=== PATIENT | female | born 1945 | race American Indian/Alaskan Native ===

== ENCOUNTER 2018-03-23 06:44 | Inpatient (IN) | payer OTHER ==
[2018-03-23] MEDS ORDERED: Sodium Chloride 0.9% 1,000 ML IV ONE (07:40)
[2018-03-23 08:03] LABS: BASO # 0.1 K/uL (0.0-0.2); BASO % 0.8 % (0.0-2.0); EOS % 0.3 % (0.0-4.0); HEMOGLOBIN 12.8 g/dL (11.0-16.0); LYMPH # 1.4 K/uL (1.0-4.3); LYMPH % 18.6 % (20.0-40.0); MEAN CELL VOLUME 91.1 fL (81.0-99.0); MEAN CORPUSCULAR HEMOGLOBIN 30.8 pg (27.0-31.0); MEAN CORPUSCULAR HGB CONC 33.8 g/dL (33.0-37.0); MEAN PLATELET VOLUME 10.2 fL (7.2-11.7); MONO # 0.5 K/uL (0.0-0.8); MONO % 7.1 % (0.0-10.0); NEUT # 5.6 K/uL (1.8-7.0); NEUT % 73.2 % (50.0-75.0); RBC 4.16 Mil/uL (3.80-5.20); RED CELL DISTRIBUTION WIDTH 14.8 % (11.5-14.5); WHITE BLOOD COUNT 7.6 K/uL (4.8-10.8)
[2018-03-23] MEDS ORDERED: Sodium Chloride 0.9% 1,000 ML ONE (08:03)
[2018-03-23 08:14] LABS: ALBUMIN 4.6 g/dL (3.5-5.0); ALT/SGPT 29 U/L (9-52); AST/SGOT 34 U/L (14-36); BLOOD UREA NITROGEN 24 mg/dL (7-17); CALCIUM 9.5 mg/dl (8.6-10.4); GFR NON-AFRICAN AMERICAN 49; LIPASE 45 U/L (23-300)
--- NOTE | 2018-03-23 08:17 | C.PDOC ---
<Anette Monson - Last Filed: 03/23/18 08:12> History Per: Patient History/Exam Limitations: no limitations Onset/Duration Of Symptoms: Days (2-3) Current Symptoms Are (Timing): Still Present Associated Symptoms: Nausea, Vomiting, Diarrhea. denies: Back Pain, Chest Pain , Other (abdominal pain) <Alyssa Griggs - Last Filed: 03/23/18 10:31> Time Seen by Provider: 03/23/18 07:21 Chief Complaint (Nursing): Abdominal Pain Past Medical History - Medical History PMH: HTN - Social History Hx Alcohol Use: No Hx Substance Use: No <Anette Monson - Last Filed: 03/23/18 08:12> Reviewed: Historical Data, Nursing Documentation, Vital Signs - Medical History PMH: HTN Surgical History: No Surg Hx <Alyssa Griggs - Last Filed: 03/23/18 10:31> Vital Signs: Last Vital Signs Temp 98.3 F 03/23/18 09:57 Pulse 76 03/23/18 09:57 Resp 20 03/23/18 09:57 BP 183/83 H 03/23/18 09:57 Pulse Ox 96 03/23/18 09:57 ED Course And Treatment - Laboratory Results Result Diagrams: 03/23/18 07:58 O2 Sat by Pulse Oximetry: 94 <Anette Monson - Last Filed: 03/23/18 08:12> - Laboratory Results Result Diagrams: 03/23/18 07:58 03/23/18 07:58 <Alyssa Griggs - Last Filed: 03/23/18 10:31> Disposition <Anette Monson - Last Filed: 03/23/18 08:12> <Alyssa Griggs - Last Filed: 03/23/18 10:31> - Disposition Forms: [employer] ([place])
--- NOTE | 2018-03-23 08:52 | RAD ---
Date of service: 03/23/2018 HISTORY: vomiting COMPARISON: No prior. FINDINGS: LUNGS: Reticular markings are somewhat accentuated at the inferior lung zones bilaterally which could reflect atypical pneumonitis. CHF is not favored given lack of hypervascular hilar vascular markings though this is a possibility. PLEURA: No significant pleural effusion identified, no pneumothorax apparent. CARDIOVASCULAR: Prominent cardiac silhouette but no definite pulmonary vascular congestion evident. OSSEOUS STRUCTURES: No significant abnormalities. VISUALIZED UPPER ABDOMEN: Normal. OTHER FINDINGS: None. IMPRESSION: Increased mid to inferior reticular markings potentially reflection of atypical pneumonitis or early CHF. Clinically correlate further. Cardiac silhouette appears prominent.
[2018-03-23 09:06] LABS: CK-MB 0.64 ng/mL (0.0-3.38)
[2018-03-23] MEDS ORDERED: Labetalol 25mg/5ml Syringe IV STA ×2 (10:08→11:08)
[2018-03-23] MEDS ORDERED: Metoprolol 1 mg/ml Inj IVP STA (10:13)
[2018-03-23] MEDS ORDERED: Metoprolol 1 mg/ml Inj IVP ONE (10:20)
--- NOTE | 2018-03-23 10:34 | C.PDOC ---
History Of Present Illness 72 year old female with a history of HTN presents to the emergency department with complains of nausea, vomiting, and diarrhea for the last 2-3 days, as per her son. Patient reports that she has not been taking any of her HTN medications due to the fact that she ran out, and she states she typically experiences these symptoms when she does run out. She reports feeling "hot" but denies chest pain, abdominal pain, back pain, shortness of breath, numbness, or weakness. Time Seen by Provider: 03/23/18 07:21 Chief Complaint (Nursing): Abdominal Pain History Per: Patient History/Exam Limitations: no limitations Onset/Duration Of Symptoms: Days (2-3) Current Symptoms Are (Timing): Still Present Associated Symptoms: Nausea, Vomiting, Diarrhea (abdominal pain, shortness of breath, numbness, weakness). denies: Back Pain, Chest Pain Past Medical History Reviewed: Historical Data, Nursing Documentation, Vital Signs Vital Signs: Last Vital Signs Temp 97.9 F 03/31/18 15:00 Pulse 70 03/31/18 15:00 Resp 20 03/31/18 15:00 BP 133/65 03/31/18 17:51 Pulse Ox 96 03/31/18 15:00 - Medical History PMH: HTN Surgical History: No Surg Hx Family History: States: No Known Family Hx - Social History Hx Alcohol Use: No Hx Substance Use: No Review Of Systems Except As Marked, All Systems Reviewed And Found Negative. Cardiovascular: Negative for: Chest Pain Respiratory: Negative for: Shortness of Breath Gastrointestinal: Positive for: Nausea, Vomiting, Diarrhea. Negative for: Abdominal Pain Musculoskeletal: Negative for: Back Pain Neurological: Negative for: Weakness, Numbness Physical Exam - Physical Exam Appears: Non-toxic, No Acute Distress, Other (dry) Skin: Warm, Dry Head: Atraumatic, Normacephalic Eye(s): bilateral: Normal Inspection Neck: Normal, Supple Chest: Symmetrical Cardiovascular: Rhythm Regular, No Murmur Respiratory: Normal Breath Sounds, No Rales, No Rhonchi, No Wheezing Gastrointestinal/Abdominal: Normal Exam, Soft, No Tenderness, No Guarding, No Rebound Extremity: Normal ROM Neurological/Psych: Oriented x3, Normal Speech, Normal Cognition ED Course And Treatment - Laboratory Results Result Diagrams: 03/31/18 09:48 03/31/18 09:48 O2 Sat by Pulse Oximetry: 96 (RA) Pulse Ox Interpretation: Normal - Other Rad CXR X-Ray: Viewed By Me, Read By Radiologist Interpretation: IMPRESSION: Increased mid to inferior reticular markings potentially reflection of atypical pneumonitis or early CHF. Clinically correlate further. Cardiac silhouette appears prominent. Progress Note: Plan: CMP. Lipase. JACE Panel. CBC. CXR. Lopressor 5mg IVP. NaCl IV Fluids. Trandate 20mg IV. Zofran 4mg IVP. Urinalysis Disposition - Disposition Disposition: HOSPITALIZED Disposition Time: 10:49 Condition: STABLE - Clinical Impression Clinical Impression: Weakness, Abnormal EKG - PA / [employer]ST[employer]ER [employer] / Resident Statement MD/DO has reviewed & agrees with the documentation as recorded. - Scribe Statement The provider has reviewed the documentation as recorded by the Scribe (Shan Morillo) All medical record entries made by the Scribe were at my direction and personally dictated by me. I have reviewed the chart and agree that the record accurately reflects my personal performance of the history, physical exam, medical decision making, and the department course for this patient. I have also personally directed, reviewed, and agree with the discharge instructions and disposition.
--- NOTE | 2018-03-23 12:01 | CP.PCM.HP ---
<Flash Morganophe - Last Filed: 03/23/18 17:39> History of Present Illness - History of Present Illness History of Present Illness: Medicine note for hospitalist service [place] translated : [place] [id number] HPI 72yo female with a pmhx of htn presents to the ed with constant clear non- bloody vomiting x3 days and elevated bp. Pt is not able to tolerate foods. Pt has vomited any fluids shes been able to drink for past 3 days aswell. Pt reports poor appetite, hiccups as well. Pt feels dizzy post vomiting, but room is not spinning. Pt denies headaches or changes in vision. Pt has associated back pain, shoulder discomfort. Pt reports heart palpitations as previously diagnosed with her pmhx of HTN. Pt also reports freq urination (likely due to lasix? unconfirmed home rx). her last bowel movement was loose dark stool and painful when passing. ROS: pos+ n/v, dizziness, palps, loose stools, dark stools, pain with defecation , urine freq neg- hematemesis, CP, SOS, change in vision, headache, fall, diarrhea, constipation, bloody stool, bloody urine, PMD: unable to recall PMHx: HTN, gingivitis? tooth extraction (pt doesnt recall date) PSx: denies Meds: ASA ?dose, 3 unknown hypertensive meds? FamHx: Father CAD, Mom HTN DM SocHx: denies tobacco, etoh, drugs, lives with son Franklin ([phone]) Full Code Present on Admission - Present on Admission Any Indicators Present on Admission: No Review of Systems - Constitutional Constitutional: As Per HPI - EENT Eyes: As Per HPI Ears: As Per HPI Nose/Mouth/Throat: As Per HPI - Breasts Breasts: As Per HPI - Cardiovascular Cardiovascular: As Per HPI - Respiratory Respiratory: As Per HPI - Gastrointestinal Gastrointestinal: As Per HPI - Genitourinary Genitourinary: As Per HPI - Reproductive: Female Reproductive:Female: As Per HPI - Menstruation Menstruation: As Per HPI - Musculoskeletal Musculoskeletal: As Per HPI - Integumentary Integumentary: As Per HPI - Neurological Neurological: As Per HPI - Psychiatric Psychiatric: As Per HPI - Endocrine Endocrine: As Per HPI - Hematologic/Lymphatic Hematologic: As Per HPI Past Patient History - Past Social History Smoking Status: Never Smoked - CARDIAC Hx Hypertension: Yes - PSYCHIATRIC Hx Substance Use: No Meds Allergies/Adverse Reactions: Allergies Allergy/AdvReac Type Severity Reaction Status Date / Time No Known Allergies Allergy Verified 03/23/18 07:06 Physical Exam - Constitutional Appears: Confused - Head Exam Head Exam: ATRAUMATIC, NORMAL INSPECTION - Eye Exam Eye Exam: EOMI, Normal appearance, PERRL - ENT Exam ENT Exam: Mucous Membranes Moist Additional comments: missing multiple teeth gums appear erythematous - Neck Exam Neck exam: Positive for: Normal Inspection - Respiratory Exam Respiratory Exam: Clear to Auscultation Bilateral. absent: Wheezes, Respiratory Distress, Stridor - Cardiovascular Exam Cardiovascular Exam: RRR, +S1, +S2. absent: Diastolic murmur, Systolic Murmur - GI/Abdominal Exam Additional comments: LUQ abdominal tenderness on deep palpation NEG rebound - Extremities Exam Extremities exam: Positive for: normal inspection, pedal pulses present. Negative for: calf tenderness, joint swelling, pedal edema - Back Exam Back exam: NORMAL INSPECTION, paraspinal tenderness. absent: CVA tenderness (L) , CVA tenderness (R) Additional comments: thoracic bliaterally - due to chronic back pain as per pt - Neurological Exam Neurological exam: Alert, CN II-XII Intact, Oriented x3 - Psychiatric Exam Psychiatric exam: Normal Affect, Normal Mood - Skin Skin Exam: Dry, Intact, Normal Color, Warm Results - Vital Signs Recent Vital Signs: Last Vital Signs Temp 98.3 F 03/23/18 09:57 Pulse 75 03/23/18 11:45 Resp 20 03/23/18 11:45 BP 191/93 H 03/23/18 11:45 Pulse Ox 99 03/23/18 11:45 - Labs Result Diagrams: 03/23/18 07:58 03/23/18 07:58 Labs: Laboratory Results - last 24 hr 03/23/18 03/23/18 07:58 07:58 WBC 7.6 RBC 4.16 Hgb 12.8 Hct 37.9 MCV 91.1 MCH 30.8 MCHC 33.8 RDW 14.8 H Plt Count 160 MPV 10.2 Neut % (Auto) 73.2 Lymph % (Auto) 18.6 L [place] % (Auto) 7.1 Eos % (Auto) 0.3 Baso % (Auto) 0.8 Neut # (Auto) 5.6 Lymph # (Auto) 1.4 [place] # (Auto) 0.5 Eos # (Auto) 0.0 Baso # (Auto) 0.1 Sodium 144 Potassium 3.6 Chloride 100 Carbon Dioxide 30 Anion Gap 17 BUN 24 H Creatinine 1.1 Est GFR ( Amer) 59 Est GFR (Non-Af Amer) 49 Random Glucose 127 H Calcium 9.5 Total Bilirubin 0.5 AST 34 ALT 29 Alkaline Phosphatase 122 Total Creatine Kinase 107 CK-MB (Mass) 0.64 Troponin I < 0.0120 Total Protein 9.1 H Albumin 4.6 Globulin 4.5 H Albumin/Globulin Ratio 1.0 Lipase 45 Assessment & Plan - Assessment and Plan (Free Text) Assessment: 72yo F with a pmh of HTN with 3 days of vomitting, loose stool, chest discomfort and fatigue. Plan: HTN: -BP 210/100 on floor down to 170/80 this evening 6pm please cont to follow -bnp 190 -EKG: RBBB -amlodipine 10mg PO daily -coreg 12.5mg PO BID -Enalapril 2.5mg IVP once -Labetalol 20mg IVP once -[id number] prn PRN -Lasix 40mg IVP BID -f/u echo -f/u carotid Duplex -f/u trop -f/u ck-mb -f/u EKG R/o CVA -f/u CT head w/o contrast: prelim read no hemmorhagic stroke -weakness likely from dehydration Dehydration: -serum protein 9 -100ml/hr NS IV PPX: -ASA 81mg PO -Heparin sc 5000u -SCDs <Jose Juan Fitzgerald H - Last Filed: 03/23/18 18:17> Results - Vital Signs Recent Vital Signs: Last Vital Signs Temp 97.8 F 03/23/18 15:00 Pulse 63 03/23/18 15:00 Resp 20 03/23/18 15:00 BP 148/81 03/23/18 15:00 Pulse Ox 100 03/23/18 15:00 - Labs Result Diagrams: 03/23/18 07:58 03/23/18 07:58 Labs: Laboratory Results - last 24 hr 03/23/18 03/23/18 03/23/18 07:58 07:58 14:53 WBC 7.6 RBC 4.16 Hgb 12.8 Hct 37.9 MCV 91.1 MCH 30.8 MCHC 33.8 RDW 14.8 H Plt Count 160 MPV 10.2 Neut % (Auto) 73.2 Lymph % (Auto) 18.6 L [place] % (Auto) 7.1 Eos % (Auto) 0.3 Baso % (Auto) 0.8 Neut # (Auto) 5.6 Lymph # (Auto) 1.4 [place] # (Auto) 0.5 Eos # (Auto) 0.0 Baso # (Auto) 0.1 Sodium 144 Potassium 3.6 Chloride 100 Carbon Dioxide 30 Anion Gap 17 BUN 24 H Creatinine 1.1 Est GFR ( Amer) 59 Est GFR (Non-Af Amer) 49 Random Glucose 127 H Calcium 9.5 Total Bilirubin 0.5 AST 34 ALT 29 Alkaline Phosphatase 122 Total Creatine Kinase 107 CK-MB (Mass) 0.64 0.69 Troponin I < 0.0120 < 0.0120 NT-Pro-B Natriuret Pep Total Protein 9.1 H Albumin 4.6 Globulin 4.5 H Albumin/Globulin Ratio 1.0 Lipase 45 Urine Color Urine Clarity Urine pH Ur Specific [place] Urine Protein Urine Glucose (UA) Urine Ketones Urine Blood Urine Nitrate Urine Bilirubin Urine Urobilinogen Ur Leukocyte Esterase Urine WBC (Auto) Urine RBC (Auto) Ur Squamous Epith Cells 03/23/18 03/23/18 14:53 16:47 WBC RBC Hgb Hct MCV MCH MCHC RDW Plt Count MPV Neut % (Auto) Lymph % (Auto) [place] % (Auto) Eos % (Auto) Baso % (Auto) Neut # (Auto) Lymph # (Auto) [place] # (Auto) Eos # (Auto) Baso # (Auto) Sodium Potassium Chloride Carbon Dioxide Anion Gap BUN Creatinine Est GFR ( Amer) Est GFR (Non-Af Amer) Random Glucose Calcium Total Bilirubin AST ALT Alkaline Phosphatase Total Creatine Kinase CK-MB (Mass) Troponin I NT-Pro-B Natriuret Pep 190 Total Protein Albumin Globulin Albumin/Globulin Ratio Lipase Urine Color Yellow Urine Clarity Clear Urine pH 6.0 Ur Specific [place] 1.019 Urine Protein 1+ H Urine Glucose (UA) Normal Urine Ketones 1+ H Urine Blood 2+ H Urine Nitrate Negative Urine Bilirubin Negative Urine Urobilinogen Normal Ur Leukocyte Esterase Neg Urine WBC (Auto) 1 Urine RBC (Auto) 16 H Ur Squamous Epith Cells 1 Attending/Attestation - Attestation I have personally seen and examined this patient.: Yes I have fully participated in the care of the patient.: Yes I have reviewed all pertinent clinical information: Yes Notes (Text): 03/23/18 18:07 Medical attending: Patient was seen and examined by me. Agree with the above note by the resident The patient was not in acute distress. On exam and review of vitals she does have very elevated BP. In the ER she had some nausea and vomitting noted We ordered IV labetalol as well as IV vasotech. Norvasc 10 was also given as well. CT scan was done, at this moment pending the official read - I wanted to assess for possible CVA as she keeps indicating to us that she seems to have left face pain. Unfortunately history and ROS with the patient is not good. She is a not familiar with her own medical history. We tried to use a shipping services sales representative as she does not speak [place]e, however the shipping services sales representative device cut off in the middle of our discussion. Even then she does not know her own medical history and while she says she knows she is supposed to be taking her BP medications - she does not know what they are and also does not know her pharmacy. The staff tried reaching out to the son over the phone but not successful yet. Troponin was negative but we need to check additional. Also BNP was low. The CXRAY looked like had some minimal congestion. Because of the high blood pressure will need echo as well as carotid studies. Later on she had some vommiting - so will try to see if she has relief with IV Sabra Fitzgerald
[2018-03-23] MEDS ORDERED: Enalaprilat 2.5 MG/2 ML IV ONE (13:06)
[2018-03-23] MEDS ORDERED: Labetalol 25mg/5ml Syringe IVP ONE (13:15)
[2018-03-23] MEDS ORDERED: Sodium Chloride 0.45% 1,000 ML IV SCH ×3 (13:15→23:26)
[2018-03-23 15:05] LABS: SQUAMOUS EPITHIAL 1 /hpf (0-5); URINE BILIRUBIN NEGATIVE (NEGATIVE); URINE BLOOD 2+ (NEGATIVE); URINE CLARITY Clear (Clear); URINE COLOR Yellow (YELLOW); URINE GLUCOSE (UA) NORMAL (Normal); URINE LEUKOCYTE ESTERASE NEG Leu/uL (Negative); URINE PROTEIN 1+ mg/dL (NEGATIVE); URINE UROBILINOGEN NORMAL mg/dL (0.2-1.0)
[2018-03-23 15:28] LABS: CK-MB 0.69 ng/mL (0.0-3.38)
[2018-03-23] MEDS ORDERED: Potassium Chloride 20 mEq ER Tab PO SCH (17:45)
--- NOTE | 2018-03-23 18:20 | CT ---
Date of service: 03/23/2018 PROCEDURE: CT HEAD WITHOUT CONTRAST. HISTORY: facial pain, elevate bp possible cva COMPARISON: None available. TECHNIQUE: Axial computed tomography images were obtained through the head/brain without intravenous contrast. Radiation dose: Total exam DLP = 1105.10 mGy-cm. This CT exam was performed using one or more of the following dose reduction techniques: Automated exposure control, adjustment of the mA and/or kV according to patient size, and/or use of iterative reconstruction technique. FINDINGS: HEMORRHAGE: No intracranial hemorrhage. BRAIN: Mild chronic microangiopathy type white-matter density changes are identified at bilateral periventricular white matter and occasional subcortical white matter through the frontal and parietal lobes. There is no mass effect hydrocephalus or suspicious extra-axial collection appreciated. Posterior fossa contents appear unremarkable including the brainstem. A chronic lacune is identified at the anterior right basal ganglia. Mildly prominent cisterna magna is identified. No significant volume loss appreciated focally or diffusely. No cortical edema. VENTRICLES: Unremarkable. No hydrocephalus. CALVARIUM: Unremarkable. PARANASAL SINUSES: Unremarkable as visualized. No significant inflammatory changes. MASTOID AIR CELLS: Unremarkable as visualized. No inflammatory changes. OTHER FINDINGS: None. IMPRESSION: No definite acute intracranial findings as per standard CT criteria. Very limited age-related neuro degenerative findings are identified as well as a chronic lacune right basal ganglia anteriorly. Follow-up CT or MRI are available for additional characterization as clinically warranted. Concordant preliminary report from [facility], 03/23/2018.
[2018-03-23] MEDS ORDERED: Sodium Chloride 0.9% 1,000 ML IV SCH (23:30)
[2018-03-23 23:39] LABS: ALB/GLOB RATIO 0.9 (1.0-2.1); ALBUMIN 3.9 g/dL (3.5-5.0); ALT/SGPT 23 U/L (9-52); AST/SGOT 35 U/L (14-36); BLOOD UREA NITROGEN 22 mg/dL (7-17); CALCIUM 8.6 mg/dl (8.6-10.4); GFR NON-AFRICAN AMERICAN > 60
[2018-03-23 23:49] LABS: CK-MB 0.59 ng/mL (0.0-3.38)
[2018-03-24 07:24] LABS: BASO % 0.6 % (0.0-2.0); EOS % 0.2 % (0.0-4.0); LYMPH # 1.7 K/uL (1.0-4.3); LYMPH % 20.7 % (20.0-40.0); MEAN CELL VOLUME 91.2 fL (81.0-99.0); MEAN CORPUSCULAR HEMOGLOBIN 30.9 pg (27.0-31.0); MEAN CORPUSCULAR HGB CONC 33.8 g/dL (33.0-37.0); MEAN PLATELET VOLUME 10.1 fL (7.2-11.7); MONO # 0.6 K/uL (0.0-0.8); MONO % 6.8 % (0.0-10.0); NEUT % 71.7 % (50.0-75.0); RBC 3.89 Mil/uL (3.80-5.20); RED CELL DISTRIBUTION WIDTH 14.4 % (11.5-14.5); WHITE BLOOD COUNT 8.4 K/uL (4.8-10.8)
[2018-03-24 08:13] LABS: ALBUMIN 3.6 g/dL (3.5-5.0); ALT/SGPT 27 U/L (9-52); AST/SGOT 27 U/L (14-36); BLOOD UREA NITROGEN 20 mg/dL (7-17); CALCIUM 8.4 mg/dl (8.6-10.4); GFR NON-AFRICAN AMERICAN > 60
--- NOTE | 2018-03-24 08:24 | CP.PCM.PN ---
<Edwin Morgan - Last Filed: 03/24/18 17:12> Subjective - Date & Time of Evaluation Date of Evaluation: 03/24/18 Time of Evaluation: 11:04 - Subjective Subjective: MEDICINE NOTE FOR HOSPITALIST SERVICE Pt seen and examined at bedside. Pt still complining of nauseau and vomiting yesterday. Pt feels dizzy upon standing. Pt reports tolerating pills PO but not food. Pt advised to beging CLD intake at slow tolerable rate. Objective - Vital Signs/Intake and Output Vital Signs (last 24 hours): Temp Pulse Resp BP Pulse Ox 98.2 F 62 20 186/82 H 100 03/24/18 05:15 03/24/18 05:15 03/24/18 05:15 03/24/18 05:15 03/24/18 05:15 Intake and Output: 03/24/18 03/24/18 06:59 18:59 Intake Total 600 Balance 600 - Medications Medications: Current Medications Amlodipine Besylate (Norvasc) 10 mg PO DAILY [facility] Last Admin: 03/23/18 13:49 Dose: 10 mg Aspirin (Aspirin Chewable) 81 mg PO DAILY [facility] Last Admin: 03/23/18 19:58 Dose: 81 mg Carvedilol (Coreg) 12.5 mg PO BID [facility] Last Admin: 03/23/18 19:59 Dose: 12.5 mg Heparin Sodium (Porcine) (Heparin) 5,000 units SC Q8 [facility] Last Admin: 03/24/18 05:18 Dose: 5,000 units Lisinopril (Zestril) 5 mg PO DAILY [facility] Last Admin: 03/24/18 08:06 Dose: 5 mg Ondansetron HCl (Zofran Inj) 4 mg IVP Q6 [facility] Last Admin: 03/24/18 05:15 Dose: 4 mg Ondansetron HCl (Zofran Inj) 4 mg IVP DAILY@ONCE PRN PRN Reason: Nausea/Vomiting Last Admin: 03/23/18 19:32 Dose: 4 mg Pneumococcal Polyvalent Vaccine (Pneumovax 23 Vaccine) 0.5 ml IM .ONCE ONE Stop: 03/25/18 10:01 - Labs Labs: 03/24/18 07:14 03/24/18 07:14 - Additional Findings Additional findings: - Constitutional Appears: Confused - Head Exam Head Exam: ATRAUMATIC, NORMAL INSPECTION - Eye Exam Eye Exam: EOMI, Normal appearance, PERRL - ENT Exam ENT Exam: Mucous Membranes Moist Additional comments: missing multiple teeth gums appear erythematous - Neck Exam Neck exam: Positive for: Normal Inspection - Respiratory Exam Respiratory Exam: Clear to Auscultation Bilateral. absent: Wheezes, Respiratory Distress, Stridor - Cardiovascular Exam Cardiovascular Exam: RRR, +S1, +S2. absent: Diastolic murmur, Systolic Murmur - GI/Abdominal Exam Additional comments: LUQ abdominal tenderness on deep palpation NEG rebound - Extremities Exam Extremities exam: Positive for: normal inspection, pedal pulses present. Negative for: calf tenderness, joint swelling, pedal edema - Back Exam Back exam: NORMAL INSPECTION, paraspinal tenderness. absent: CVA tenderness (L) , CVA tenderness (R) Additional comments: thoracic bliaterally - due to chronic back pain as per pt - Neurological Exam Neurological exam: Alert, CN II-XII Intact, Oriented x3 - Psychiatric Exam Psychiatric exam: Normal Affect, Normal Mood - Skin Skin Exam: Dry, Intact, Normal Color, Warm Assessment and Plan - Assessment and Plan (Free Text) Assessment: 72yo F with a pmh of HTN with 3 days of vomitting, loose stool, chest discomfort and fatigue. Plan: HTN: -BP 210/100 on floor down to 170/80 this evening 6pm please cont to follow -bnp 190 -amlodipine 10mg PO daily -coreg 12.5mg PO BID -Enalapril 2.5mg IVP once -Labetalol 20mg IVP once -[id number] prn PRN -Lasix 40mg IVP BID -f/u echo -f/u carotid Duplex -trop neg x3 -ck-mb neg x3 -EKG x3 RBB Hypokalemia: -K : 3.3 -Kdur 40 -monitor R/o CVA -CT head w/o contrast: prelim read no hemmorhagic stroke -weakness likely from dehydration Facial Pain -lower left sided molar tooth pain -recommending outpt dentistry f/u Dehydration: -serum protein 9 -100ml/hr NS IV PPX: -ASA 81mg PO -Heparin sc 5000u -SCDs <Fausto Prince - Last Filed: 03/24/18 18:10> Objective - Vital Signs/Intake and Output Vital Signs (last 24 hours): Temp Pulse Resp BP Pulse Ox 98.4 F 61 20 169/80 H 99 03/24/18 15:00 03/24/18 15:00 03/24/18 15:00 03/24/18 15:00 03/24/18 15:00 Intake and Output: 03/24/18 03/24/18 06:59 18:59 Intake Total 600 Balance 600 - Medications Medications: Current Medications Amlodipine Besylate (Norvasc) 10 mg PO DAILY [facility] Last Admin: 03/24/18 10:06 Dose: 10 mg Aspirin (Aspirin Chewable) 81 mg PO DAILY [facility] Last Admin: 03/24/18 10:04 Dose: 81 mg Carvedilol (Coreg) 12.5 mg PO BID [facility] Last Admin: 03/24/18 10:06 Dose: 12.5 mg Heparin Sodium (Porcine) (Heparin) 5,000 units SC Q8 [facility] Last Admin: 03/24/18 14:41 Dose: 5,000 units Hydralazine HCl (Apresoline) 10 mg PO Q6H PRN PRN Reason: Systolic Blood Pressure Lisinopril (Zestril) 10 mg PO Q24H [facility] Pneumococcal Polyvalent Vaccine (Pneumovax 23 Vaccine) 0.5 ml IM .ONCE ONE Stop: 03/25/18 10:01 Promethazine HCl (Phenergan Syrup) 12.5 mg PO Q6 PRN PRN Reason: Nausea/Vomiting - Labs Labs: 03/24/18 07:14 03/24/18 07:14 Attending/Attestation - Attestation I have personally seen and examined this patient.: Yes I have fully participated in the care of the patient.: Yes I have reviewed all pertinent clinical information, including history, physical exam and plan: Yes Notes (Text): 03/24/18 17:28 Patient was seen and examined with Nurse Mary who translated Creol at 3:30 PM 03/24/18 Upon FULL ROS: Moved her bowels yesterday 03/23/18 normally Left side of face and head pain secondary to a tooth ache that has been going for the past year. Patient has seen an unspecified dentist roughly 1 month ago and for unspecified reason lower tooth was not removed Left inferior breast soreness/cramping pain that occurs on and off for the past 1 1/2 years. Has not had a recent Mammogram Dizziness if she gets up too quickly She had a bowl of soup prior to my exam and tolerated it without any nausea or abdominal pain She has no burning/pain with urination and has urinated twice today and the number of times that she has been going has been less NO chest pain NO palpitations NO SOB/Cough/Wheezing NO dysphagia/odynophagia NO abdominal pain NO new changes in vision NO new changes in hearing NO numbness/loss of sensation of any of her extremities Exam: General: AAOX3, NAD HEENT: NCA, EOMI, PERRLA, NO cervical/supraclavicular/submandibular lymphadenopathy, NO pharyngeal erythema/exudate, Nasal Turbinates are nonerythematous/nonedematous, Oral Mucosa is moist, Poor Dentition with multiple teeth missing upper and lower jaw, NO tooth abscess or cavity noted Cardio: NS1 and NS2, NO M/R/G Resp: CTA B/L, NO R/R/W GI: BSx4, Soft, NT, NO HSM however central obesity limits exam, NO guarding/ rebound tenderness Ext: Pulses are strong and equal, Capillary refill is 2 seconds, NO edema Neuro: CN II through XII are grossly intact 1). Nausea/Vomiting This appears to have resolved as patient is tolerating her liquid diet and had soup without any issues She is moving her bowels and GI exam is unremarkable This could be secondary to the complaints of dizziness DO NOT USE Zofran and Reglan for this patient as there is prolonged QTc on EKG Promethazine 5 ml Q6H PO PRN N/V 2). Frequent Urination Patient had this complaint upon admission however is not complaining of it now There is NO burning/pain with urination, no feeling of incomplete evacuation of the bladder, NO CVA tenderness F/U Urine Culture 3). HTN Norvasc 10 mg PO 1x/day at 10 AM Coreg 12.5 mg PO 2x/day at 10 AM and 6 PM Lisinopril increased to 10 mg PO 1x/day at 2 PM starting 03/25/18: extra 5 mg dose given 03/24/18 Hydralazine 10 mg PO Q6H PRN SBP > 160: note that IV Hydralazine is out of stock in [facility] pharmacy 4). Dizziness and Possible CVA? Admitting hospitalist was concerned for possible CVA due to complaints of Left Facial weekness However, this "weekness" is actually pain secondary to a toothache as described above in ROS Patient will need follow up with her Dentist or another Dentist for a second opinion CT Head shows age related neurodegenerative changes and chronic lacunar right basal ganglion infarct MRI Brain with and without contrast was ordered by admitting team. However I do not believe that this is necessary and considering that this patient is an extremely poor historian concerning her own medical history, we can not be sure that she does not have any metal hardware. Informed by Nurse Mary that son was supposed to come in later this evening (multiple attempts made by resident to reach out to son were not successful) and I have asked her to page the house resident when the son comes in so that additional history can be obtained. Aspirin 81 mg PO 1x/day Crestor 5 mg PO 1x/day TSH, T4 are normal Troponin x 3 are negative F/U Carotid Doppler F/U 2D Echocardiogram F/U Lyme SO with reflex Western Blot F/U RPR and FTA-Ab F/U Vitamin B12 F/U Folate F/U Vitamin D F/U Lipid Panel 5). Left Anterior Fascicular Block with RBBB EKG shows tall R wave and small Q wave in I and aVL, small R wave and deep S wave in II-III-aVF, left axis deviation, prolonged QTc which fits with Left Anterior Fascicular Block Also shows RBBB There are NO prior EKG for review and patient history is not reliable Troponin x 3 negative and she has no current complaints of Chest Pain, Palpitations, SOB F/U 2D Echocardiogram F/U further recommendations from Towel Rolling Machine Operator Dr. Bearden 6). Hypokalemia Repleted Monitor 7). Prophylaxis Heparin 5,000 Unit SC Q8H Promethazine 5 ml PO Q6H PRN N/V: NO Zofran and NO Reglan because of the prolonged QTc F/U PT evaluation and treatment for Gait Disposition: Get in contact with the son for more history! Fausto Prince D.O. 03/24/18 18:10
[2018-03-24] MEDS ORDERED: Potassium Chloride 20 mEq ER Tab PO SCH (10:00)
[2018-03-24] MEDS ORDERED: Promethazine 12.5 mg/10 ml Syrup PO PRN (15:06)
--- NOTE | 2018-03-24 18:11 | CP.PCM.PN ---
Subjective - Date & Time of Evaluation Date of Evaluation: 03/24/18 Time of Evaluation: 15:30 - Subjective Subjective: Patient was seen and examined with Nurse Mary who translated Creol at 3:30 PM 03/24/18 Upon FULL ROS: Moved her bowels yesterday 03/23/18 normally Left side of face and head pain secondary to a tooth ache that has been going for the past year. Patient has seen an unspecified dentist roughly 1 month ago and for unspecified reason lower tooth was not removed Left inferior breast soreness/cramping pain that occurs on and off for the past 1 1/2 years. Has not had a recent Mammogram Dizziness if she gets up too quickly She had a bowl of soup prior to my exam and tolerated it without any nausea or abdominal pain She has no burning/pain with urination and has urinated twice today and the number of times that she has been going has been less NO chest pain NO palpitations NO SOB/Cough/Wheezing NO dysphagia/odynophagia NO abdominal pain NO new changes in vision NO new changes in hearing NO numbness/loss of sensation of any of her extremities Exam: General: AAOX3, NAD HEENT: NCA, EOMI, PERRLA, NO cervical/supraclavicular/submandibular lymphadenopathy, NO pharyngeal erythema/exudate, Nasal Turbinates are nonerythematous/nonedematous, Oral Mucosa is moist, Poor Dentition with multiple teeth missing upper and lower jaw, NO tooth abscess or cavity noted Cardio: NS1 and NS2, NO M/R/G Resp: CTA B/L, NO R/R/W GI: BSx4, Soft, NT, NO HSM however central obesity limits exam, NO guarding/ rebound tenderness Ext: Pulses are strong and equal, Capillary refill is 2 seconds, NO edema Neuro: CN II through XII are grossly intact 1). Nausea/Vomiting This appears to have resolved as patient is tolerating her liquid diet and had soup without any issues She is moving her bowels and GI exam is unremarkable This could be secondary to the complaints of dizziness DO NOT USE Zofran and Reglan for this patient as there is prolonged QTc on EKG Promethazine 5 ml Q6H PO PRN N/V 2). Frequent Urination Patient had this complaint upon admission however is not complaining of it now There is NO burning/pain with urination, no feeling of incomplete evacuation of the bladder, NO CVA tenderness F/U Urine Culture 3). HTN Norvasc 10 mg PO 1x/day at 10 AM Coreg 12.5 mg PO 2x/day at 10 AM and 6 PM Lisinopril increased to 10 mg PO 1x/day at 2 PM starting 03/25/18: extra 5 mg dose given 03/24/18 Hydralazine 10 mg PO Q6H PRN SBP > 160: note that IV Hydralazine is out of stock in [facility] pharmacy 4). Dizziness and Possible CVA? Admitting hospitalist was concerned for possible CVA due to complaints of Left Facial weekness However, this "weekness" is actually pain secondary to a toothache as described above in ROS Patient will need follow up with her Dentist or another Dentist for a second opinion CT Head shows age related neurodegenerative changes and chronic lacunar right basal ganglion infarct MRI Brain with and without contrast was ordered by admitting team. However I do not believe that this is necessary and considering that this patient is an extremely poor historian concerning her own medical history, we can not be sure that she does not have any metal hardware. Informed by Nurse Hernandez that son was supposed to come in later this evening (multiple attempts made by resident to reach out to son were not successful) and I have asked her to page the house resident when the son comes in so that additional history can be obtained. Aspirin 81 mg PO 1x/day Crestor 5 mg PO 1x/day TSH, T4 are normal Troponin x 3 are negative F/U Carotid Doppler F/U 2D Echocardiogram F/U Lyme SO with reflex Western Blot F/U RPR and FTA-Ab F/U Vitamin B12 F/U Folate F/U Vitamin D F/U Lipid Panel 5). Left Anterior Fascicular Block with RBBB EKG shows tall R wave and small Q wave in I and aVL, small R wave and deep S wave in II-III-aVF, left axis deviation, prolonged QTc which fits with Left Anterior Fascicular Block Also shows RBBB There are NO prior EKG for review and patient history is not reliable Troponin x 3 negative and she has no current complaints of Chest Pain, Palpitations, SOB F/U 2D Echocardiogram F/U further recommendations from Home Health Outreach Coordinator Dr. Bearden 6). Hypokalemia Repleted Monitor 7). Prophylaxis Heparin 5,000 Unit SC Q8H Promethazine 5 ml PO Q6H PRN N/V: NO Zofran and NO Reglan because of the prolonged QTc F/U PT evaluation and treatment for Gait Disposition: Get in contact with the son for more history! Fausto Prince D.O. Objective - Vital Signs/Intake and Output Vital Signs (last 24 hours): Temp Pulse Resp BP Pulse Ox 98.4 F 61 20 169/80 H 99 03/24/18 15:00 03/24/18 15:00 03/24/18 15:00 03/24/18 15:00 03/24/18 15:00 Intake and Output: 03/24/18 03/24/18 06:59 18:59 Intake Total 600 Balance 600 - Medications Medications: Current Medications Amlodipine Besylate (Norvasc) 10 mg PO DAILY [facility] Last Admin: 03/24/18 10:06 Dose: 10 mg Aspirin (Aspirin Chewable) 81 mg PO DAILY [facility] Last Admin: 03/24/18 10:04 Dose: 81 mg Carvedilol (Coreg) 12.5 mg PO BID [facility] Last Admin: 03/24/18 10:06 Dose: 12.5 mg Heparin Sodium (Porcine) (Heparin) 5,000 units SC Q8 [facility] Last Admin: 03/24/18 14:41 Dose: 5,000 units Hydralazine HCl (Apresoline) 10 mg PO Q6H PRN PRN Reason: Systolic Blood Pressure Lisinopril (Zestril) 10 mg PO Q24H [facility] Pneumococcal Polyvalent Vaccine (Pneumovax 23 Vaccine) 0.5 ml IM .ONCE ONE Stop: 03/25/18 10:01 Promethazine HCl (Phenergan Syrup) 12.5 mg PO Q6 PRN PRN Reason: Nausea/Vomiting Rosuvastatin Calcium (Crestor) 5 mg PO HS [facility] - Labs Labs: 03/24/18 07:14 03/24/18 07:14
--- NOTE | 2018-03-25 08:55 | CP.PCM.PN ---
<James Crews - Last Filed: 03/25/18 18:26> Subjective - Date & Time of Evaluation Date of Evaluation: 03/25/18 Time of Evaluation: 08:40 - Subjective Subjective: Medicine Progress Note for Dr. Elijah Crews, PGY-1 Patient was seen and examined at bedside this AM with Nurse Mary who translated Creole. No acute events reported overnight. Tolerating diet well, denies any nausea, vomiting, or diarrhea. Patient continues to complain of L sided facial and head pain, likely secondary to chronic toothache for over 1 year. Per patient, she has seen an unspecified dentist in the past roughly 1 month ago and has had tooth extractions, although she was unable to remove her lower tooth for unknown reasons. No other complaints noted. Denies any chest pain, palpitations, SOB, cough, dysphagia, abdominal pain, changes in vision, or numbness/tingling of any of her extremities. Objective - Vital Signs/Intake and Output Vital Signs (last 24 hours): Temp Pulse Resp BP Pulse Ox 98.4 F 57 L 20 132/81 95 03/25/18 07:25 03/25/18 08:00 03/25/18 07:25 03/25/18 07:25 03/25/18 07:25 - Medications Medications: Current Medications Amlodipine Besylate (Norvasc) 10 mg PO DAILY [facility] Last Admin: 03/24/18 10:06 Dose: 10 mg Aspirin (Aspirin Chewable) 81 mg PO DAILY [facility] Last Admin: 03/24/18 10:04 Dose: 81 mg Carvedilol (Coreg) 12.5 mg PO BID [facility] Last Admin: 03/24/18 19:37 Dose: 12.5 mg Heparin Sodium (Porcine) (Heparin) 5,000 units SC Q8 [facility] Last Admin: 03/24/18 23:08 Dose: 5,000 units Hydralazine HCl (Apresoline) 10 mg PO Q6H PRN PRN Reason: Systolic Blood Pressure Lisinopril (Zestril) 10 mg PO Q24H [facility] Pneumococcal Polyvalent Vaccine (Pneumovax 23 Vaccine) 0.5 ml IM .ONCE ONE Stop: 03/25/18 10:01 Promethazine HCl (Phenergan Syrup) 12.5 mg PO Q6 PRN PRN Reason: Nausea/Vomiting Rosuvastatin Calcium (Crestor) 5 mg PO HS [facility] Last Admin: 03/24/18 23:08 Dose: 5 mg - Labs Labs: 03/24/18 07:14 03/24/18 07:14 - Constitutional Appears: Non-toxic, No Acute Distress - Head Exam Head Exam: ATRAUMATIC, NORMAL INSPECTION, NORMOCEPHALIC - ENT Exam ENT Exam: Mucous Membranes Moist Additional comments: Poor dentition with numerous upper and lower teeth missing. No tooth abscesses or cavitary lesions noted on exam. - Neck Exam Neck Exam: Normal Inspection. absent: Lymphadenopathy, Tenderness - Respiratory Exam Respiratory Exam: Clear to Ausculation Bilateral, NORMAL BREATHING PATTERN - Cardiovascular Exam Cardiovascular Exam: REGULAR RHYTHM, +S1, +S2 - GI/Abdominal Exam GI & Abdominal Exam: Soft, Normal Bowel Sounds. absent: Distended, Firm, Guarding, Tenderness, Mass - Extremities Exam Extremities Exam: Normal Capillary Refill, Normal Inspection. absent: Pedal Edema, Tenderness - Neurological Exam Neurological Exam: Alert, Awake, Oriented x3 - Psychiatric Exam Psychiatric exam: Normal Affect, Normal Mood - Skin Skin Exam: Dry, Intact, Normal Color, Warm Assessment and Plan - Assessment and Plan (Free Text) Assessment: 72 yo Creole speaking F with PMHx of HTN presenting with 3 days of vomiting, loose stool, chest discomfort and fatigue. Plan: 1. Nausea/Vomiting -Appears to have resolved; pt tolerated liquid diet well with no acute events -GI exam unremarkable -advance to regular, soft diet -DO NOT USE Zofran and Reglan for this patient as there is prolonged QTc on EKG -Promethazine 5 ml Q6H PO PRN N/V 2. Frequent Urination -Resolved -NO burning/pain with urination, no feeling of incomplete evacuation of the bladder, NO CVA tenderness F/U Urine Culture 3. HTN -Norvasc 10 mg PO 1x/day at 10 AM -Coreg 12.5 mg PO 2x/day at 10 AM and 6 PM -Lisinopril 10 mg PO 1x/day -Hydralazine 10 mg PO Q6H PRN SBP > 160: note that IV Hydralazine is out of stock in [facility] pharmacy 4. Dizziness, r/o CVA -Admitting hospitalist was concerned for possible CVA due to complaints of L facial weakness -"weakness" is actually pain secondary to a toothache -f/u dentist outpatient -CT Head (03/23): age related neuro-degenerative changes and chronic lacunar right basal ganglion infarct -Carotid Doppler Study (03/23): no acute findings -MRI head (03/25): no acute findings, moderate chronic microangiopathic changes and age-related global parenchymal volume loss -continue w/ ASA 81 mg PO 1x/day -continue w/ Crestor 5 mg PO 1x/day -TSH, T4 are normal -Troponin x 3 are negative -f/u 2D Echo -RPR serology nonreactive -f/u Lyme SO with reflex Western Blot -Vitamin B12, folate normal - Vitamin D 14.9 5. Left Anterior Fascicular Block with RBBB -EKG: tall R wave and small Q wave in I and aVL, small R wave and deep S wave in II-III-aVF, left axis deviation, prolonged QTc which fits with Left Anterior Fascicular Block -Also shows RBBB -NO prior EKG for review and patient history is not reliable -troponin x3 negative, no current complaints of chest pain, palpitations, SOB -f/u 2D Echo -further recs as per Biometric Fingerprinting Technician (Dr. Bearden) 6. Hypokalemia -repleted, continue to monitor 7. PPx -continue w/ heparin 5,000 Unit SC Q8H -continue w/ promethazine 5 ml PO Q6H PRN for n/v -NO Zofran and NO Reglan because of the prolonged QTc -f/u PT for Gait -Case discussed with Dr. Elijah Crews, PGY-1 <Ana María Nava - Last Filed: 03/27/18 17:01> Objective - Vital Signs/Intake and Output Vital Signs (last 24 hours): Temp Pulse Resp BP Pulse Ox 98.4 F 68 20 143/81 97 03/27/18 07:25 03/27/18 12:05 03/27/18 07:25 03/27/18 10:12 03/27/18 07:25 - Medications Medications: Current Medications Amlodipine Besylate (Norvasc) 10 mg PO DAILY [facility] Last Admin: 03/27/18 12:53 Dose: 10 mg Aspirin (Aspirin Chewable) 81 mg PO DAILY [facility] Last Admin: 03/27/18 10:13 Dose: 81 mg Carvedilol (Coreg) 12.5 mg PO BID [facility] Last Admin: 03/27/18 10:12 Dose: 12.5 mg Hydralazine HCl (Apresoline) 10 mg PO Q6H PRN PRN Reason: Systolic Blood Pressure Lisinopril (Zestril) 10 mg PO Q24H [facility] Last Admin: 03/26/18 13:05 Dose: 10 mg Promethazine HCl (Phenergan Syrup) 12.5 mg PO Q6 PRN PRN Reason: Nausea/Vomiting Rosuvastatin Calcium (Crestor) 5 mg PO HS [facility] Last Admin: 03/26/18 21:34 Dose: 5 mg - Labs Labs: 03/27/18 07:06 03/27/18 07:06 Attending/Attestation - Attestation I have personally seen and examined this patient.: Yes I have fully participated in the care of the patient.: Yes I have reviewed all pertinent clinical information, including history, physical exam and plan: Yes Notes (Text): Seen and examined, complaining of tooth problem,no active inflammation noted, Patient is not a good historian. Nurse Mary who translated Creole No vomiting,eating ok, MRI brain and CT head shows old infarct plan..follow cardiology recommendation PT evaluation we will discuss with her son Assessment and the plan discussed with the resident. I agree with the documentation
[2018-03-25] MEDS ORDERED: Pneumococcal 23-Valent Vaccine IM ONE (10:00)
--- NOTE | 2018-03-25 10:34 | VASCLAB ---
Date of service: 03/24/2018 PROCEDURE: HISTORY: Dizziness COMPARISON: None available. TECHNIQUE: Grayscale and duplex Doppler evaluation of the cervical carotid and vertebral arteries were performed. The common carotid, carotid bifurcations and cervical Internal Carotid Artery (ICA) and proximal External Carotid Artery (ECA) were evaluated. The vertebral arteries were evaluated for gross patency and flow direction. Report prepared by RABIA Sherman FINDINGS: RIGHT CAROTID ARTERIES: 1. Common Carotid Artery: No significant focal plaque formation of the right common carotid artery. Maximum Peak Systolic velocity: 77 cm/sec: End-diastolic velocity 13 cm/sec. 2. Carotid Bifurcation: plaque formation. Maximum Peak Systolic velocity: 57 cm/sec: End-diastolic velocity 9 cm/sec. 3. Internal Carotid Artery: Plaque description: 3.1. Proximal Segment: Peak systolic velocity 75 cm/sec: End-diastolic velocity 15 cm/sec - % stenosis 0-15% 3.2. Middle Segment: Peak systolic velocity 40 cm/sec: End-diastolic velocity 12 cm/sec - % stenosis 0-15% 3.3. Distal Segment: Peak systolic velocity 74 cm/sec: End-diastolic velocity 26 cm/sec - % stenosis 0-15% 4. External Carotid Artery: No significant focal plaque formation. Peak systolic velocity 87 cm/sec 5. ICA/CCA Ratio: 1.0 LEFT CAROTID ARTERIES: 1. Common Carotid Artery: No significant focal plaque formation of the left common carotid artery. Maximum Peak Systolic velocity: 80 cm/sec: End-diastolic velocity 9 cm/sec. 2. Carotid Bifurcation: plaque formation. Maximum Peak Systolic velocity: 47 cm/sec: End-diastolic velocity 8 cm/sec. 3. Internal Carotid Artery: Plaque description: 3.1. Proximal Segment: Peak systolic velocity 42 cm/sec: End-diastolic velocity 14 cm/sec - % stenosis 0-15% 3.2. Middle Segment: Peak systolic velocity 28 cm/sec: End-diastolic velocity 10 cm/sec - % stenosis 0-15% 3.3. Distal Segment: Peak systolic velocity 55 cm/sec: End-diastolic velocity 13 cm/sec - % stenosis 0-15% 4. External Carotid Artery: No significant focal plaque formation. Peak systolic velocity 72 cm/sec 5. ICA/CCA Ratio: 0.8 VERTEBRAL ARTERIES: 1. Right Vertebral Artery: The right vertebral artery flow direction is antegrade. 2. Left Vertebral Artery: The left vertebral artery flow direction is antegrade. OTHER FINDINGS: None. IMPRESSION: RIGHT: Duplex scan does not suggest hemodynamically significant stenosis of the right extracranial carotid arteries. LEFT: Duplex scan does not suggest hemodynamically significant stenosis of the left extracranial carotid arteries.
[2018-03-25 11:55] LABS: BASO # 0.1 K/uL (0.0-0.2); BASO % 0.8 % (0.0-2.0); EOS % 0.3 % (0.0-4.0); HEMOGLOBIN 12.5 g/dL (11.0-16.0); LYMPH # 2.7 K/uL (1.0-4.3); LYMPH % 28.1 % (20.0-40.0); MEAN CELL VOLUME 92.1 fL (81.0-99.0); MEAN CORPUSCULAR HEMOGLOBIN 31.2 pg (27.0-31.0); MEAN CORPUSCULAR HGB CONC 33.9 g/dL (33.0-37.0); MEAN PLATELET VOLUME 10.2 fL (7.2-11.7); MONO # 0.8 K/uL (0.0-0.8); MONO % 8.9 % (0.0-10.0); NEUT # 5.9 K/uL (1.8-7.0); NEUT % 61.9 % (50.0-75.0); NRBC % 0.1 % (0.0-2.0); RED CELL DISTRIBUTION WIDTH 14.8 % (11.5-14.5); WHITE BLOOD COUNT 9.5 K/uL (4.8-10.8)
[2018-03-25 12:07] LABS: ALBUMIN 3.9 g/dL (3.5-5.0); ALT/SGPT 28 U/L (9-52); AST/SGOT 38 U/L (14-36); BLOOD UREA NITROGEN 22 mg/dL (7-17); CALCIUM 9.1 mg/dl (8.6-10.4); GFR NON-AFRICAN AMERICAN > 60; HDL CHOLESTEROL 31 mg/dL (30-70)
[2018-03-25 12:32] LABS: LDL CHOLESTEROL 115 mg/dL (0-129)
--- NOTE | 2018-03-25 13:50 | MRI ---
Date of service: 03/25/2018 PROCEDURE: MRI BRAIN WITH AND WITHOUT CONTRAST HISTORY: f/u CT COMPARISON: Noncontrast head CT from 03/23/2018. TECHNIQUE: Multiplanar, multisequence MR images of the brain were obtained with and without intravenous contrast enhancement. 15 mL Omniscan was injected intravenously. FINDINGS: HEMORRHAGE: None DWI: No evidence of an acute or early subacute infarction. BRAIN PARENCHYMA: There are moderate chronic microangiopathic changes. There are old lacunar infarctions in the right basal ganglia and left paramedian mayela. There are prominent perivascular spaces in the basal ganglia. There is no mass, mass effect or abnormal extra-axial fluid collection. The midline sagittal structures are normal. ENHANCEMENT: No abnormal intracranial enhancement. VENTRICLES: There is mild age-related global parenchymal volume loss and proportionate enlargement of the ventricles and cortical sulci. 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 CRANIUM: There is normal bone marrow signal pattern. ORBITS: Grossly unremarkable. PARANASAL SINUSES/MASTOIDS: There is mild mucosal thickening in the paranasal sinuses, worse in the right maxillary sinus. There are trace mastoid effusions. VASCULAR SYSTEM: There are normal signal voids in the larger intracranial arteries. OTHER FINDINGS: None . IMPRESSION: No acute intracranial abnormality. Moderate chronic microangiopathic changes and mild age-related global parenchymal volume loss.
--- NOTE | 2018-03-26 07:12 | CP.PCM.PN ---
<James Crwes - Last Filed: 03/26/18 14:53> Subjective - Date & Time of Evaluation Date of Evaluation: 03/26/18 Time of Evaluation: 07:10 - Subjective Subjective: Medicine Progress Note for Dr. Elijah Crews, PGY-1 Patient was seen and examined at bedside this AM with nurse Mary Luz. No acute events reported overnight. No new episodes of vomiting or loose stools. Facial pain has improved, per patient, but still present. Continues to c/o of L sided toothache. Pt is tolerating soft diet. No n /v/d, constipation, chest pain, palpitations, SOB, cough, or changes in urination. Objective - Vital Signs/Intake and Output Vital Signs (last 24 hours): Temp Pulse Resp BP Pulse Ox 99.1 F 74 20 119/68 99 03/26/18 04:00 03/26/18 04:00 03/26/18 04:00 03/26/18 04:00 03/26/18 04:00 - Medications Medications: Current Medications Amlodipine Besylate (Norvasc) 10 mg PO DAILY [facility] Last Admin: 03/25/18 11:07 Dose: 10 mg Aspirin (Aspirin Chewable) 81 mg PO DAILY [facility] Last Admin: 03/25/18 11:07 Dose: 81 mg Carvedilol (Coreg) 12.5 mg PO BID [facility] Last Admin: 03/25/18 17:24 Dose: 12.5 mg Heparin Sodium (Porcine) (Heparin) 5,000 units SC Q8 [facility] Last Admin: 03/26/18 05:49 Dose: 5,000 units Hydralazine HCl (Apresoline) 10 mg PO Q6H PRN PRN Reason: Systolic Blood Pressure Lisinopril (Zestril) 10 mg PO Q24H [facility] Last Admin: 03/25/18 15:49 Dose: 10 mg Promethazine HCl (Phenergan Syrup) 12.5 mg PO Q6 PRN PRN Reason: Nausea/Vomiting Rosuvastatin Calcium (Crestor) 5 mg PO HS [facility] Last Admin: 03/25/18 21:34 Dose: 5 mg - Labs Labs: 03/25/18 11:41 03/25/18 11:41 - Constitutional Appears: Non-toxic, No Acute Distress - Head Exam Head Exam: ATRAUMATIC, NORMAL INSPECTION, NORMOCEPHALIC - Eye Exam Eye Exam: Normal appearance - ENT Exam ENT Exam: Mucous Membranes Moist, Normal Exam Additional comments: Poor dentition with numerous upper and lower teeth missing. No tooth abscesses or cavitary lesions noted on exam. - Respiratory Exam Respiratory Exam: Clear to Ausculation Bilateral, NORMAL BREATHING PATTERN - Cardiovascular Exam Cardiovascular Exam: RRR, +S1, +S2 - GI/Abdominal Exam GI & Abdominal Exam: Soft, Normal Bowel Sounds. absent: Distended, Firm, Guarding, Tenderness - Extremities Exam Extremities Exam: Normal Inspection - Back Exam Back Exam: NORMAL INSPECTION - Neurological Exam Neurological Exam: Alert, Awake, Oriented x3 - Psychiatric Exam Psychiatric exam: Normal Affect, Normal Mood - Skin Skin Exam: Dry, Intact, Normal Color, Warm Assessment and Plan - Assessment and Plan (Free Text) Assessment: 72 yo Creole speaking F with PMHx of HTN presenting with L sided facial pain and toothache and associated vomiting, loose stool, chest discomfort and fatigue x 3 days. Plan: 1. Nausea/Vomiting -Appears to have resolved; pt tolerating soft regular diet -GI exam unremarkable -DO NOT USE Zofran and Reglan for this patient as there is prolonged QTc on EKG -Promethazine 5 ml Q6H PO PRN N/V 2. Frequent Urination -Resolved -NO burning/pain with urination, no feeling of incomplete evacuation of the bladder, NO CVA tenderness -UCx: multiple spp, recommend repeat specimen 3. HTN -Norvasc 10 mg PO 1x/day at 10 AM -Coreg 12.5 mg PO 2x/day at 10 AM and 6 PM -Lisinopril 10 mg PO 1x/day -Hydralazine 10 mg PO Q6H PRN SBP > 160: note that IV Hydralazine is out of stock in [facility] pharmacy 4. Dizziness, r/o CVA -Admitting hospitalist was concerned for possible CVA due to complaints of L facial weakness -"weakness" is actually pain secondary to a toothache -f/u dentist outpatient -CT Head (03/23): age related neuro-degenerative changes and chronic lacunar right basal ganglion infarct -Carotid Doppler Study (03/23): no acute findings -MRI head (03/25): no acute findings, moderate chronic microangiopathic changes and age-related global parenchymal volume loss -continue w/ ASA 81 mg PO 1x/day -continue w/ Crestor 5 mg PO 1x/day -TSH, T4 are normal -Troponin x 3 are negative -f/u 2D Echo -RPR serology nonreactive -Lyme Screen negative -Vitamin B12, folate normal - Vitamin D 14.9 5. Left Anterior Fascicular Block with RBBB -EKG: tall R wave and small Q wave in I and aVL, small R wave and deep S wave in II-III-aVF, left axis deviation, prolonged QTc which fits with Left Anterior Fascicular Block -Also shows RBBB -NO prior EKG for review and patient history is not reliable -troponin x3 negative, no current complaints of chest pain, palpitations, SOB -f/u 2D Echo -further recs as per [employer] Rew[employer] (Dr. Bearden) 6. Hypokalemia -repleted, continue to monitor 7. PPx -continue w/ heparin 5,000 Unit SC Q8H -continue w/ promethazine 5 ml PO Q6H PRN for n/v -NO Zofran and NO Reglan because of the prolonged QTc -PT on board -recommended ALEJANDRO for d/c but pt has no discharge -requires walker for ambulation -took 5 side steps with moderate assistance, unsteady gait -recommends additional time on floor to work on strength, if planning to d/c home -can set up home PT when ready for d/c -Case discussed with Dr. Elijah Crews, PGY-1 <Ana María Nava - Last Filed: 03/27/18 17:04> Objective - Vital Signs/Intake and Output Vital Signs (last 24 hours): Temp Pulse Resp BP Pulse Ox 97.2 F L 69 20 145/72 99 03/27/18 15:00 03/27/18 15:00 03/27/18 15:00 03/27/18 15:00 03/27/18 15:00 - Medications Medications: Current Medications Amlodipine Besylate (Norvasc) 10 mg PO DAILY [facility] Last Admin: 03/27/18 12:53 Dose: 10 mg Aspirin (Aspirin Chewable) 81 mg PO DAILY [facility] Last Admin: 03/27/18 10:13 Dose: 81 mg Carvedilol (Coreg) 12.5 mg PO BID [facility] Last Admin: 03/27/18 10:12 Dose: 12.5 mg Hydralazine HCl (Apresoline) 10 mg PO Q6H PRN PRN Reason: Systolic Blood Pressure Lisinopril (Zestril) 10 mg PO Q24H [facility] Last Admin: 03/27/18 14:00 Dose: 10 mg Promethazine HCl (Phenergan Syrup) 12.5 mg PO Q6 PRN PRN Reason: Nausea/Vomiting Rosuvastatin Calcium (Crestor) 5 mg PO HS [facility] Last Admin: 03/26/18 21:34 Dose: 5 mg - Labs Labs: 03/27/18 07:06 03/27/18 07:06 Attending/Attestation - Attestation I have personally seen and examined this patient.: Yes I have fully participated in the care of the patient.: Yes I have reviewed all pertinent clinical information, including history, physical exam and plan: Yes Notes (Text): Seen and examined. no new complain patient was seen by automation test developer. no new recommendation Seen by PT. Recommending ALEJANDRO. She has no insurance We will follow up with SON,sw and PT Assessment and the plan discussed with the resident
[2018-03-26 07:57] LABS: BASO # 0.1 K/uL (0.0-0.2); BASO % 0.9 % (0.0-2.0); EOS # 0.1 K/uL (0.0-0.7); EOS % 0.7 % (0.0-4.0); HEMOGLOBIN 11.7 g/dL (11.0-16.0); LYMPH # 2.8 K/uL (1.0-4.3); LYMPH % 33.3 % (20.0-40.0); MEAN CELL VOLUME 91.2 fL (81.0-99.0); MEAN CORPUSCULAR HEMOGLOBIN 30.8 pg (27.0-31.0); MEAN CORPUSCULAR HGB CONC 33.8 g/dL (33.0-37.0); MEAN PLATELET VOLUME 10.1 fL (7.2-11.7); MONO # 0.8 K/uL (0.0-0.8); NEUT # 4.8 K/uL (1.8-7.0); NEUT % 56.1 % (50.0-75.0); NRBC % 0.1 % (0.0-2.0); RBC 3.81 Mil/uL (3.80-5.20); RED CELL DISTRIBUTION WIDTH 14.6 % (11.5-14.5); WHITE BLOOD COUNT 8.5 K/uL (4.8-10.8)
[2018-03-26 08:09] LABS: ALBUMIN 3.6 g/dL (3.5-5.0)
[2018-03-26] MEDS ORDERED: Potassium Chloride 20 mEq/15 ml LIQ UD PO ONE (12:44)
--- NOTE | 2018-03-26 16:47 | CARD ---
APPROVED REPORT Date of service: 03/23/2018 EKG Measurement Heart [id number] ND [id number] <Conclusion> Sinus rhythm with premature atrial complexes Right bundle branch block Left anterior fascicular block Bifascicular block Voltage criteria for left ventricular hypertrophy Abnormal ECG
--- NOTE | 2018-03-26 16:53 | CARD ---
APPROVED REPORT Date of service: 03/23/2018 EKG Measurement Heart [id number] MD [id number] <Conclusion> Sinus rhythm with blocked premature atrial complexes Right bundle branch block Left anterior fascicular block Bifascicular block Voltage criteria for left ventricular hypertrophy T wave abnormality, consider lateral ischemia Abnormal ECG
--- NOTE | 2018-03-26 16:55 | CARD ---
APPROVED REPORT Date of service: 03/23/2018 EKG Measurement Heart [id number] [id number] <Conclusion> Normal sinus rhythm Right bundle branch block Left anterior fascicular block Bifascicular block Voltage criteria for left ventricular hypertrophy Abnormal ECG
--- NOTE | 2018-03-26 18:31 | CP.PCM.PN ---
<LoboYassinegila - Last Filed: 03/26/18 18:29> Subjective - Date & Time of Evaluation Date of Evaluation: 03/26/18 Time of Evaluation: 13:40 - Subjective Subjective: PGY 3 Cardiology Note- Dr. Bearden's service Patient seen and examined in no apparent acute distress. No acute events overnight per nursing. Patient admits to a headache at this time. She denies other complaints at this time. Objective - Vital Signs/Intake and Output Vital Signs (last 24 hours): Temp Pulse Resp BP Pulse Ox 97.8 F 66 20 129/71 97 03/26/18 15:15 03/26/18 15:15 03/26/18 15:15 03/26/18 17:17 03/26/18 15:15 - Medications Medications: Current Medications Amlodipine Besylate (Norvasc) 10 mg PO DAILY [facility] Last Admin: 03/26/18 10:28 Dose: 10 mg Aspirin (Aspirin Chewable) 81 mg PO DAILY [facility] Last Admin: 03/26/18 10:28 Dose: 81 mg Carvedilol (Coreg) 12.5 mg PO BID [facility] Last Admin: 03/26/18 17:17 Dose: 12.5 mg Heparin Sodium (Porcine) (Heparin) 5,000 units SC Q8 [facility] Last Admin: 03/26/18 14:45 Dose: 5,000 units Hydralazine HCl (Apresoline) 10 mg PO Q6H PRN PRN Reason: Systolic Blood Pressure Lisinopril (Zestril) 10 mg PO Q24H [facility] Last Admin: 03/26/18 13:05 Dose: 10 mg Promethazine HCl (Phenergan Syrup) 12.5 mg PO Q6 PRN PRN Reason: Nausea/Vomiting Rosuvastatin Calcium (Crestor) 5 mg PO HS [facility] Last Admin: 03/25/18 21:34 Dose: 5 mg - Labs Labs: 03/26/18 07:45 03/26/18 07:45 - Constitutional Appears: Non-toxic, No Acute Distress - Head Exam Head Exam: ATRAUMATIC - Eye Exam Eye Exam: EOMI, Normal appearance Pupil Exam: NORMAL ACCOMODATION - ENT Exam ENT Exam: Mucous Membranes Moist - Neck Exam Neck Exam: Full ROM - Respiratory Exam Respiratory Exam: NORMAL BREATHING PATTERN - Cardiovascular Exam Cardiovascular Exam: +S1, +S2 - GI/Abdominal Exam GI & Abdominal Exam: Soft - Extremities Exam Extremities Exam: Full ROM - Neurological Exam Neurological Exam: Alert, Awake, Oriented x3 - Psychiatric Exam Psychiatric exam: Normal Affect, Normal Mood - Skin Skin Exam: Dry, Normal Color, Warm Assessment and Plan - Assessment and Plan (Free Text) Assessment: Left Anterior Fascicular Block with RBBB Signs of RBBB noted on EKG. No clinical complaints at this time. Continue monitoring. Echo report pending HTN Continued antihypertensive management Prophylactic measure Heparin SC Q12 No GI prophylaxis at this time Patient is stable from cardiology standpoint. Will sign off at this time. <Dimas Bearden - Last Filed: 03/26/18 21:37> Objective - Vital Signs/Intake and Output Vital Signs (last 24 hours): Temp Pulse Resp BP Pulse Ox 97.8 F 71 20 129/71 97 03/26/18 15:15 03/26/18 16:00 03/26/18 15:15 03/26/18 17:17 03/26/18 15:15 - Medications Medications: Current Medications Amlodipine Besylate (Norvasc) 10 mg PO DAILY [facility] Last Admin: 03/26/18 10:28 Dose: 10 mg Aspirin (Aspirin Chewable) 81 mg PO DAILY [facility] Last Admin: 03/26/18 10:28 Dose: 81 mg Carvedilol (Coreg) 12.5 mg PO BID [facility] Last Admin: 03/26/18 17:17 Dose: 12.5 mg Heparin Sodium (Porcine) (Heparin) 5,000 units SC Q8 [facility] Last Admin: 03/26/18 14:45 Dose: 5,000 units Hydralazine HCl (Apresoline) 10 mg PO Q6H PRN PRN Reason: Systolic Blood Pressure Lisinopril (Zestril) 10 mg PO Q24H [facility] Last Admin: 03/26/18 13:05 Dose: 10 mg Promethazine HCl (Phenergan Syrup) 12.5 mg PO Q6 PRN PRN Reason: Nausea/Vomiting Rosuvastatin Calcium (Crestor) 5 mg PO HS [facility] Last Admin: 03/25/18 21:34 Dose: 5 mg - Labs Labs: 03/26/18 07:45 03/26/18 07:45 Assessment and Plan - Assessment and Plan (Free Text) Assessment: Patient seen and evaluated personally by me Plan of care d/w the medical officer psychiatry and as documented ECHO: Normal LV function No further cardiac work up needed. Will sign off Thank you
[2018-03-27 07:27] LABS: BASO # 0.1 K/uL (0.0-0.2); BASO % 0.7 % (0.0-2.0); EOS # 0.1 K/uL (0.0-0.7); EOS % 1.5 % (0.0-4.0); HEMOGLOBIN 11.4 g/dL (11.0-16.0); LYMPH # 3.2 K/uL (1.0-4.3); MEAN CELL VOLUME 90.8 fL (81.0-99.0); MEAN CORPUSCULAR HGB CONC 34.2 g/dL (33.0-37.0); MEAN PLATELET VOLUME 10.3 fL (7.2-11.7); MONO # 0.8 K/uL (0.0-0.8); MONO % 8.5 % (0.0-10.0); NEUT % 54.3 % (50.0-75.0); NRBC % 0.1 % (0.0-2.0); RBC 3.66 Mil/uL (3.80-5.20); WHITE BLOOD COUNT 9.2 K/uL (4.8-10.8)
[2018-03-27 07:48] LABS: ALB/GLOB RATIO 0.9 (1.0-2.1); ALBUMIN 3.4 g/dL (3.5-5.0)
--- NOTE | 2018-03-27 10:15 | CP.PCM.PN ---
<James Crews - Last Filed: 03/27/18 15:15> Subjective - Date & Time of Evaluation Date of Evaluation: 03/27/18 Time of Evaluation: 07:40 - Subjective Subjective: PGY-[address] Nava Patient seen and examined at bedside this AM. No acute events reported overnight. Tolerating diet well. Continues to have mild L sided facial pain a/w toothache. No nausea or vomiting, no loose stools. Denies constipation, chest pain, palpitations, SOB, cough, or changes in urination. Spoke with pt's son on the phone about her clinical status. Son says she does not follow a PMD regularly and has run out of MXP4. Advised to follow up in outpatient clinic at [facility] for continuity of care. Objective - Vital Signs/Intake and Output Vital Signs (last 24 hours): Temp Pulse Resp BP Pulse Ox 98.4 F 73 20 118/74 97 03/27/18 07:25 03/27/18 07:25 03/27/18 07:25 03/27/18 07:25 03/27/18 07:25 - Medications Medications: Current Medications Amlodipine Besylate (Norvasc) 10 mg PO DAILY [facility] Last Admin: 03/26/18 10:28 Dose: 10 mg Aspirin (Aspirin Chewable) 81 mg PO DAILY [facility] Last Admin: 03/26/18 10:28 Dose: 81 mg Carvedilol (Coreg) 12.5 mg PO BID [facility] Last Admin: 03/26/18 17:17 Dose: 12.5 mg Hydralazine HCl (Apresoline) 10 mg PO Q6H PRN PRN Reason: Systolic Blood Pressure Lisinopril (Zestril) 10 mg PO Q24H [facility] Last Admin: 03/26/18 13:05 Dose: 10 mg Promethazine HCl (Phenergan Syrup) 12.5 mg PO Q6 PRN PRN Reason: Nausea/Vomiting Rosuvastatin Calcium (Crestor) 5 mg PO HS [facility] Last Admin: 03/26/18 21:34 Dose: 5 mg - Labs Labs: 03/27/18 07:06 03/27/18 07:06 - Constitutional Appears: Non-toxic, No Acute Distress - Head Exam Head Exam: ATRAUMATIC, NORMAL INSPECTION, NORMOCEPHALIC - ENT Exam ENT Exam: Mucous Membranes Moist, Normal Exam Additional comments: Poor dentition with numerous upper and lower teeth missing. No tooth abscesses or cavitary lesions noted on exam. - Respiratory Exam Respiratory Exam: Clear to Ausculation Bilateral, NORMAL BREATHING PATTERN - Cardiovascular Exam Cardiovascular Exam: RRR, +S1, +S2 - GI/Abdominal Exam GI & Abdominal Exam: Soft, Normal Bowel Sounds. absent: Distended, Firm, Guarding, Rigid, Tenderness - Extremities Exam Extremities Exam: Normal Capillary Refill, Normal Inspection - Back Exam Back Exam: NORMAL INSPECTION - Neurological Exam Neurological Exam: Alert, Awake, Oriented x3 - Psychiatric Exam Psychiatric exam: Normal Affect, Normal Mood - Skin Skin Exam: Dry, Intact, Normal Color, Warm Assessment and Plan - Assessment and Plan (Free Text) Assessment: 72 yo Creole speaking F with PMHx of HTN presenting with L sided facial pain and toothache and associated vomiting, loose stools since resolved. Plan: . Nausea/Vomiting (resolved) -pt tolerating soft regular diet -GI exam unremarkable -DO NOT USE Zofran and Reglan for this patient as there is prolonged QTc on EKG -Promethazine 5 ml Q6H PO PRN N/V 2. Frequent Urination (Resolved) -NO burning/pain with urination, no feeling of incomplete evacuation of the bladder, NO CVA tenderness -UCx: multiple spp, recommend repeat specimen 3. HTN -Norvasc 10 mg PO 1x/day at 10 AM -Coreg 12.5 mg PO 2x/day at 10 AM and 6 PM -Lisinopril 10 mg PO 1x/day -Hydralazine 10 mg PO Q6H PRN SBP > 160: note that IV Hydralazine is out of stock in [facility] pharmacy 4. Dizziness, r/o CVA -Admitting hospitalist was concerned for possible CVA due to complaints of L facial weakness -"weakness" is actually pain secondary to a toothache -f/u dentist outpatient -CT Head (03/23): age related neuro-degenerative changes and chronic lacunar right basal ganglion infarct -Carotid Doppler Study (03/23): no acute findings -MRI head (03/25): no acute findings, moderate chronic microangiopathic changes and age-related global parenchymal volume loss -continue w/ ASA 81 mg PO 1x/day -continue w/ Crestor 5 mg PO 1x/day -TSH, T4 are normal -Troponin x 3 are negative -f/u 2D Echo -RPR serology nonreactive -Lyme Screen negative -Vitamin B12, folate normal - Vitamin D 14.9 5. Left Anterior Fascicular Block with RBBB -EKG: tall R wave and small Q wave in I and aVL, small R wave and deep S wave in II-III-aVF, left axis deviation, prolonged QTc which fits with Left Anterior Fascicular Block -Also shows RBBB -NO prior EKG for review and patient history is not reliable -troponin x3 negative, no current complaints of chest pain, palpitations, SOB -f/u 2D Echo -medically cleared per Cardio recs (Dr. Bearden) 6. Hypokalemia -repleted, continue to monitor 7. PPx -continue w/ heparin 5,000 Unit SC Q8H -continue w/ promethazine 5 ml PO Q6H PRN for n/v -NO Zofran and NO Reglan because of the prolonged QTc -PT on board -recommended ALEJANDRO for d/c but pt has no insurance -requires walker for ambulation -takes 5 side steps with moderate assistance, unsteady gait -f/u case management for safe discharge plan -Case discussed with Dr. Elijah Crews, PGY-1 <Ana María Nava - Last Filed: 03/27/18 17:23> Objective - Vital Signs/Intake and Output Vital Signs (last 24 hours): Temp Pulse Resp BP Pulse Ox 97.2 F L 69 20 145/72 99 03/27/18 15:00 03/27/18 15:00 03/27/18 15:00 03/27/18 15:00 03/27/18 15:00 - Medications Medications: Current Medications Amlodipine Besylate (Norvasc) 10 mg PO DAILY [facility] Last Admin: 03/27/18 12:53 Dose: 10 mg Aspirin (Aspirin Chewable) 81 mg PO DAILY [facility] Last Admin: 03/27/18 10:13 Dose: 81 mg Carvedilol (Coreg) 12.5 mg PO BID [facility] Last Admin: 03/27/18 10:12 Dose: 12.5 mg Hydralazine HCl (Apresoline) 10 mg PO Q6H PRN PRN Reason: Systolic Blood Pressure Lisinopril (Zestril) 10 mg PO Q24H [facility] Last Admin: 03/27/18 14:00 Dose: 10 mg Promethazine HCl (Phenergan Syrup) 12.5 mg PO Q6 PRN PRN Reason: Nausea/Vomiting Rosuvastatin Calcium (Crestor) 5 mg PO HS [facility] Last Admin: 03/26/18 21:34 Dose: 5 mg - Labs Labs: 03/27/18 07:06 03/27/18 07:06 Attending/Attestation - Attestation I have personally seen and examined this patient.: Yes I have fully participated in the care of the patient.: Yes I have reviewed all pertinent clinical information, including history, physical exam and plan: Yes Notes (Text): Patient has same complain about her tooth issues. Denies dizziness to PT. Discussed with PT .She is unsteady and not ready for discharge with walker. Spoke to her Son about her baseline and past history. Asper her son she was brought in for vomiting and patient not eating well to bad teeth. She has history of hypertension. She is using cane to ambulate since she was hospitalized in [facility] . He wasn't sure whether she had stroke or not.They were told her blood pressure is high. she ambulate with cane and needs assistance at home. Son cook food for her. 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 Decline in her condition may be due to being on for few days Plan - cont PT to improve mobility and transfers. d/w the resident and I agree with the assessment and the plan
[2018-03-27] MEDS ORDERED: Potassium Chloride 20 mEq/15 ml LIQ UD PO ONE (11:15)
[2018-03-28 08:31] LABS: BASO # 0.1 K/uL (0.0-0.2); BASO % 1.2 % (0.0-2.0); EOS # 0.2 K/uL (0.0-0.7); EOS % 2.1 % (0.0-4.0); HEMOGLOBIN 11.4 g/dL (11.0-16.0); LYMPH # 3.1 K/uL (1.0-4.3); LYMPH % 31.5 % (20.0-40.0); MEAN CELL VOLUME 91.7 fL (81.0-99.0); MEAN CORPUSCULAR HEMOGLOBIN 31.2 pg (27.0-31.0); MEAN PLATELET VOLUME 11.3 fL (7.2-11.7); MONO # 0.7 K/uL (0.0-0.8); MONO % 7.4 % (0.0-10.0); NEUT # 5.7 K/uL (1.8-7.0); NEUT % 57.8 % (50.0-75.0); NRBC % 0.1 % (0.0-2.0); RBC 3.66 Mil/uL (3.80-5.20); RED CELL DISTRIBUTION WIDTH 14.8 % (11.5-14.5); WHITE BLOOD COUNT 9.8 K/uL (4.8-10.8)
[2018-03-28 09:18] LABS: ALB/GLOB RATIO 0.9 (1.0-2.1); ALBUMIN 3.5 g/dL (3.5-5.0); ALT/SGPT 23 U/L (9-52); AST/SGOT 19 U/L (14-36); BLOOD UREA NITROGEN 26 mg/dL (7-17); CALCIUM 8.9 mg/dl (8.6-10.4); GFR NON-AFRICAN AMERICAN > 60
--- NOTE | 2018-03-28 10:34 | CP.PCM.PN ---
<James Crews - Last Filed: 03/28/18 18:22> Subjective - Date & Time of Evaluation Date of Evaluation: 03/28/18 Time of Evaluation: 07:15 - Subjective Subjective: PGY-1 Medicine Progress Note for Dr. Nava Patient seen and examined lying comfortably in bed this AM. No acute events reported overnight. Continues to c/o of mild L sided facial pain a/w toothache. No other acute complaints at this time. Tolerating diet well, no nausea or vomiting, no loose stools. Denies constipation, chest pain, palpitations, SOB, cough, or changes in urination. Objective - Vital Signs/Intake and Output Vital Signs (last 24 hours): Temp Pulse Resp BP Pulse Ox 97.2 F L 86 20 146/92 H 97 03/28/18 08:43 03/28/18 08:43 03/28/18 08:43 03/28/18 09:49 03/28/18 08:43 - Medications Medications: Current Medications Amlodipine Besylate (Norvasc) 10 mg PO DAILY [facility] Last Admin: 03/28/18 09:49 Dose: 10 mg Aspirin (Aspirin Chewable) 81 mg PO DAILY [facility] Last Admin: 03/28/18 09:49 Dose: 81 mg Carvedilol (Coreg) 12.5 mg PO BID [facility] Last Admin: 03/28/18 09:49 Dose: 12.5 mg Hydralazine HCl (Apresoline) 10 mg PO Q6H PRN PRN Reason: Systolic Blood Pressure Lisinopril (Zestril) 10 mg PO Q24H [facility] Last Admin: 03/27/18 14:00 Dose: 10 mg Promethazine HCl (Phenergan Syrup) 12.5 mg PO Q6 PRN PRN Reason: Nausea/Vomiting Rosuvastatin Calcium (Crestor) 5 mg PO HS [facility] Last Admin: 03/27/18 21:29 Dose: 5 mg - Labs Labs: 03/28/18 08:19 03/28/18 08:19 - Constitutional Appears: Non-toxic, No Acute Distress, Confused - Head Exam Head Exam: ATRAUMATIC, NORMAL INSPECTION, NORMOCEPHALIC - ENT Exam ENT Exam: Mucous Membranes Moist, Normal Exam Additional comments: Poor dentition with numerous upper and lower teeth missing. No tooth abscesses or cavitary lesions noted on exam. - Respiratory Exam Respiratory Exam: Clear to Ausculation Bilateral, NORMAL BREATHING PATTERN - Cardiovascular Exam Cardiovascular Exam: RRR, +S1, +S2 - GI/Abdominal Exam GI & Abdominal Exam: Soft, Normal Bowel Sounds. absent: Distended, Firm, Guarding, Tenderness - Extremities Exam Extremities Exam: Normal Capillary Refill, Normal Inspection - Back Exam Back Exam: NORMAL INSPECTION - Neurological Exam Neurological Exam: Alert, Awake, Oriented x3. absent: Normal Gait Additional comments: Poor coordination and balance. Requires 2 person max assistance with walker for ambulation, heavily leans to her left side. - Psychiatric Exam Psychiatric exam: Normal Affect, Normal Mood - Skin Skin Exam: Dry, Intact, Normal Color, Warm Assessment and Plan - Assessment and Plan (Free Text) Assessment: 72 yo Creole speaking F with PMHx of HTN presenting with L sided facial pain and toothache and associated vomiting, loose stools since resolved. Plan: 1. Dizziness, r/o CVA -Admitting hospitalist was concerned for possible CVA due to complaints of L facial weakness -"weakness" is actually pain secondary to a toothache -f/u with dentist outpatient -CT Head (03/23): age related neuro-degenerative changes and chronic lacunar right basal ganglion infarct -Carotid Doppler Study (03/23): no acute findings -MRI head (03/25): no acute findings, moderate chronic microangiopathic changes and age-related global parenchymal volume loss -f/u repeat CT head (03/28) -TSH, T4 are normal -Troponin x 3 are negative -f/u 2D Echo -RPR serology nonreactive -Lyme Screen negative -Vitamin B12, folate normal - Vitamin D 14.9 -continue w/ ASA 81 mg PO 1x/day -continue w/ Crestor 5 mg PO 1x/day 2. HTN -Norvasc 10 mg PO 1x/day at 10 AM -Coreg 12.5 mg PO 2x/day at 10 AM and 6 PM -Lisinopril 10 mg PO 1x/day -Hydralazine 10 mg PO Q6H PRN SBP > 160: note that IV Hydralazine is out of stock in [facility] pharmacy 3. Left Anterior Fascicular Block with RBBB -EKG: tall R wave and small Q wave in I and aVL, small R wave and deep S wave in II-III-aVF, left axis deviation, prolonged QTc which fits with Left Anterior Fascicular Block -Also shows RBBB -NO prior EKG for review and patient history is not reliable -troponin x3 negative, no current complaints of chest pain, palpitations, SOB -Echo: LVH with diastolic dysfunction -medically cleared per Cardio recs (Dr. Bearden) 6. Hypokalemia -repleted, continue to monitor 7. PPx -continue w/ heparin 5,000 Unit SC Q8H -continue w/ promethazine 5 ml PO Q6H PRN for n/v -NO Zofran and NO Reglan because of the prolonged QTc -PT on board -recommended ALEJANDRO for d/c but pt has no insurance -requires 2 person max assist with walker for ambulation, very high fall risk -f/u case management for safe discharge plan -Case discussed with Dr. Elijah Crews, PGY-1 <Ana María Nava - Last Filed: 03/30/18 19:08> Objective - Vital Signs/Intake and Output Vital Signs (last 24 hours): Temp Pulse Resp BP Pulse Ox 97.7 F 74 20 150/70 96 03/30/18 15:00 03/30/18 15:00 03/30/18 15:00 03/30/18 15:00 03/30/18 15:00 - Medications Medications: Current Medications Amlodipine Besylate (Norvasc) 10 mg PO DAILY [facility] Last Admin: 03/30/18 10:09 Dose: 10 mg Aspirin (Aspirin Chewable) 81 mg PO DAILY [facility] Last Admin: 03/30/18 10:10 Dose: 81 mg Carvedilol (Coreg) 12.5 mg PO BID [facility] Last Admin: 03/30/18 10:09 Dose: 12.5 mg Heparin Sodium (Porcine) (Heparin) 5,000 units SC Q12 [facility] Last Admin: 03/30/18 10:10 Dose: 5,000 units Hydralazine HCl (Apresoline) 10 mg PO Q6H PRN PRN Reason: Systolic Blood Pressure Lisinopril (Zestril) 10 mg PO Q24H [facility] Last Admin: 03/30/18 14:44 Dose: 10 mg Promethazine HCl (Phenergan Syrup) 12.5 mg PO Q6 PRN PRN Reason: Nausea/Vomiting Rosuvastatin Calcium (Crestor) 5 mg PO HS [facility] Last Admin: 03/29/18 22:47 Dose: 5 mg - Labs Labs: 03/30/18 06:38 03/30/18 06:38 Attending/Attestation - Attestation I have personally seen and examined this patient.: Yes I have fully participated in the care of the patient.: Yes I have reviewed all pertinent clinical information, including history, physical exam and plan: Yes Notes (Text): seen and examined ,no new weakness Patient need two person assessment. Not ready for discharge. Denies dizziness to PT. complaining that her she has tooth problem.Seen without discomfort and no gum inflammation Discussed with PT .She is unsteady and not ready for discharge with walker. Spoke to her Son about her baseline and past history. Asper her son she was brought in for vomiting and patient not eating well to bad teeth. She has history of hypertension. She is using cane to ambulate since she was hospitalized in [facility] . He wasn't sure whether she had stroke or not.They were told her blood pressure was high.At home she ambulate with cane ,son help her with climb stairs. Son cook food for her. 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 Decline in her condition may be due to being on for few days we will cont PT to improve mobility and transfers. I agree with the assessment and the plan
--- NOTE | 2018-03-28 10:44 | CARD ---
APPROVED REPORT Date of service: 03/25/2018 EXAM: Two-dimensional and M-mode echocardiogram with Doppler and color Doppler. Other Information Quality : TDSRhythm : INDICATION Dizziness and Vertigo Palpitations RISK FACTORS Hypertension 2D DIMENSIONS IVSd1.3 (0.7-1.1cm)LVDd4.0 (3.9-5.9cm) PWd1.3 (0.7-1.1cm)LVDs2.1 (2.5-4.0cm) FS (%) 47.6 %LVEF (%)75.0 (>50%) M-Mode DIMENSIONS Left Atrium (MM)3.57 (2.5-4.0cm)IVSd1.43 (0.7-1.1cm) Aortic Root3.20 (2.2-3.7cm)LVDd4.44 (4.0-5.6cm) Aortic Cusp Exc.2.11 (1.5-2.0cm)PWd1.05 (0.7-1.1cm) FS (%) 51 %LVDs2.16 (2.0-3.8cm) LVEF (%)70 (>50%) Mitral Valve MV E Ezormczm15.5cm/sMV A Psgeptpf582.5cm/sE/A ratio0.6 TDI E/Lateral E'0.0E/Medial E'0.0 Tricuspid Valve TR Peak Mgfxbprl017yb/sTR Peak Gr.[id number] LEFT VENTRICLE The left ventricle is normal size. There is mild to moderate concentric left ventricular hypertrophy. The left ventricular function is normal. The left ventricular ejection fraction is within the normal range. There is normal LV segmental wall motion. Transmitral Doppler flow pattern is abnormal. AORTIC VALVE The aortic valve is mildly to moderately sclerotic. There is trace to mild aortic regurgitation. MITRAL VALVE Mitral regurgitation is trace to mild. TRICUSPID VALVE There is trace to mild tricuspid regurgitation. <Conclusion> Normal LV systolic function. LVH with disatolic dysfunction. Normal chamber size. Trace to mild AR. Trace to mild MR. Trace to mild TR
--- NOTE | 2018-03-29 07:43 | CP.PCM.PN ---
<James Crews - Last Filed: 03/29/18 18:31> Subjective - Date & Time of Evaluation Date of Evaluation: 03/29/18 Time of Evaluation: 07:10 - Subjective Subjective: PGY-1 Medicine Progress Note for Dr. Nava Patient seen and examined lying comfortably in bed this AM. No acute events reported overnight. No changes in pain. Tolerating diet well, no nausea or vomiting, no loose stools. Denies constipation, chest pain, palpitations, SOB, cough, or changes in urination. Objective - Vital Signs/Intake and Output Vital Signs (last 24 hours): Temp Pulse Resp BP Pulse Ox 98.6 F 70 18 139/70 99 03/29/18 01:00 03/29/18 01:00 03/29/18 01:00 03/29/18 01:00 03/29/18 01:00 Intake and Output: 03/29/18 03/29/18 06:59 18:59 Intake Total 200 Balance 200 - Medications Medications: Current Medications Amlodipine Besylate (Norvasc) 10 mg PO DAILY [facility] Last Admin: 03/28/18 09:49 Dose: 10 mg Aspirin (Aspirin Chewable) 81 mg PO DAILY [facility] Last Admin: 03/28/18 09:49 Dose: 81 mg Carvedilol (Coreg) 12.5 mg PO BID [facility] Last Admin: 03/28/18 18:01 Dose: 12.5 mg Heparin Sodium (Porcine) (Heparin) 5,000 units SC Q12 [facility] Last Admin: 03/28/18 22:00 Dose: 5,000 units Hydralazine HCl (Apresoline) 10 mg PO Q6H PRN PRN Reason: Systolic Blood Pressure Lisinopril (Zestril) 10 mg PO Q24H [facility] Last Admin: 03/28/18 14:56 Dose: 10 mg Promethazine HCl (Phenergan Syrup) 12.5 mg PO Q6 PRN PRN Reason: Nausea/Vomiting Rosuvastatin Calcium (Crestor) 5 mg PO HS [facility] Last Admin: 03/28/18 22:00 Dose: 5 mg - Labs Labs: 03/28/18 08:19 03/28/18 08:19 - Constitutional Appears: Non-toxic, No Acute Distress, Confused - Head Exam Head Exam: ATRAUMATIC, NORMAL INSPECTION, NORMOCEPHALIC - Eye Exam Eye Exam: EOMI, Normal appearance - ENT Exam ENT Exam: Mucous Membranes Moist, Normal Exam - Neck Exam Neck Exam: Normal Inspection - Respiratory Exam Respiratory Exam: Clear to Ausculation Bilateral, NORMAL BREATHING PATTERN - Cardiovascular Exam Cardiovascular Exam: RRR, +S1, +S2 - GI/Abdominal Exam GI & Abdominal Exam: Soft, Normal Bowel Sounds. absent: Distended, Firm, Guarding, Rigid, Tenderness - Extremities Exam Extremities Exam: Normal Capillary Refill, Normal Inspection - Back Exam Back Exam: NORMAL INSPECTION - Neurological Exam Neurological Exam: Alert, Awake, Oriented x3. absent: Normal Gait Additional comments: Poor coordination and balance. Improved ambulation but continues to lean to her left side. Significant decreased functional mobility, high fall risk per PT. - Psychiatric Exam Psychiatric exam: Normal Affect, Normal Mood - Skin Skin Exam: Dry, Intact, Normal Color, Warm Assessment and Plan - Assessment and Plan (Free Text) Assessment: 72 yo Creole speaking F with PMHx of HTN presenting with L sided facial pain and toothache and associated vomiting, loose stools since resolved. Plan: 1. Dizziness, r/o CVA -Admitting hospitalist was concerned for possible CVA due to complaints of L facial weakness -"weakness" is actually pain secondary to a toothache -f/u with dentist outpatient -CT Head (03/23): age related neuro-degenerative changes and chronic lacunar right basal ganglion infarct -Carotid Doppler Study (03/23): no acute findings -MRI head (03/25): no acute findings, moderate chronic microangiopathic changes and age-related global parenchymal volume loss -f/u repeat CT head (03/28) -TSH, T4 are normal -Troponin x 3 are negative -f/u 2D Echo -RPR serology nonreactive -Lyme Screen negative -Vitamin B12, folate normal - Vitamin D 14.9 -continue w/ ASA 81 mg PO 1x/day -continue w/ Crestor 5 mg PO 1x/day 2. HTN -Norvasc 10 mg PO 1x/day at 10 AM -Coreg 12.5 mg PO 2x/day at 10 AM and 6 PM -Lisinopril 10 mg PO 1x/day -Hydralazine 10 mg PO Q6H PRN SBP > 160: note that IV Hydralazine is out of stock in [facility] pharmacy 3. Left Anterior Fascicular Block with RBBB -EKG: tall R wave and small Q wave in I and aVL, small R wave and deep S wave in II-III-aVF, left axis deviation, prolonged QTc which fits with Left Anterior Fascicular Block -Also shows RBBB -NO prior EKG for review and patient history is not reliable -troponin x3 negative, no current complaints of chest pain, palpitations, SOB -Echo: LVH with diastolic dysfunction -medically cleared per Cardio recs (Dr. Bearden) 6. Hypokalemia -repleted, continue to monitor 7. PPx, Diet, Disposition -continue w/ heparin 5,000 Unit SC Q8H -continue w/ promethazine 5 ml PO Q6H PRN for n/v -NO Zofran and NO Reglan because of the prolonged QTc -PT on board -recommended ALEJANDRO for d/c but pt has no insurance -requires 2 person max assist with walker for ambulation, very high fall risk -f/u case management for safe discharge plan -soft, regular diet -Case discussed with Dr. Elijah Crews, PGY-1 <Ana María Nava - Last Filed: 03/30/18 19:10> Objective - Vital Signs/Intake and Output Vital Signs (last 24 hours): Temp Pulse Resp BP Pulse Ox 97.7 F 74 20 150/70 96 03/30/18 15:00 03/30/18 15:00 03/30/18 15:00 03/30/18 15:00 03/30/18 15:00 - Medications Medications: Current Medications Amlodipine Besylate (Norvasc) 10 mg PO DAILY [facility] Last Admin: 03/30/18 10:09 Dose: 10 mg Aspirin (Aspirin Chewable) 81 mg PO DAILY [facility] Last Admin: 03/30/18 10:10 Dose: 81 mg Carvedilol (Coreg) 12.5 mg PO BID [facility] Last Admin: 03/30/18 10:09 Dose: 12.5 mg Heparin Sodium (Porcine) (Heparin) 5,000 units SC Q12 [facility] Last Admin: 03/30/18 10:10 Dose: 5,000 units Hydralazine HCl (Apresoline) 10 mg PO Q6H PRN PRN Reason: Systolic Blood Pressure Lisinopril (Zestril) 10 mg PO Q24H [facility] Last Admin: 03/30/18 14:44 Dose: 10 mg Promethazine HCl (Phenergan Syrup) 12.5 mg PO Q6 PRN PRN Reason: Nausea/Vomiting Rosuvastatin Calcium (Crestor) 5 mg PO HS [facility] Last Admin: 03/29/18 22:47 Dose: 5 mg - Labs Labs: 03/30/18 06:38 03/30/18 06:38 Attending/Attestation - Attestation I have personally seen and examined this patient.: Yes I have fully participated in the care of the patient.: Yes I have reviewed all pertinent clinical information, including history, physical exam and plan: Yes Notes (Text): Seen and examined,repeat CT head negative patient's ambulation is little improved as per PT,but not ready for discharge with one person photography assistant. continue PT, D/w Resident . we discharge once she is able to ambulate to her baseline with one person photography assistant.
[2018-03-29 07:59] LABS: ALBUMIN 3.5 g/dL (3.5-5.0); ALT/SGPT 26 U/L (9-52); AST/SGOT 24 U/L (14-36); BLOOD UREA NITROGEN 22 mg/dL (7-17); CALCIUM 8.9 mg/dl (8.6-10.4); GFR NON-AFRICAN AMERICAN > 60
[2018-03-29 08:02] LABS: BASO # 0.1 K/uL (0.0-0.2); BASO % 0.8 % (0.0-2.0); EOS # 0.2 K/uL (0.0-0.7); EOS % 2.5 % (0.0-4.0); HEMOGLOBIN 10.9 g/dL (11.0-16.0); LYMPH # 2.7 K/uL (1.0-4.3); LYMPH % 31.5 % (20.0-40.0); MEAN CELL VOLUME 91.1 fL (81.0-99.0); MEAN CORPUSCULAR HEMOGLOBIN 31.2 pg (27.0-31.0); MEAN CORPUSCULAR HGB CONC 34.3 g/dL (33.0-37.0); MEAN PLATELET VOLUME 11.6 fL (7.2-11.7); MONO # 0.7 K/uL (0.0-0.8); MONO % 8.4 % (0.0-10.0); NEUT # 4.9 K/uL (1.8-7.0); NEUT % 56.8 % (50.0-75.0); NRBC % 0.1 % (0.0-2.0); RBC 3.48 Mil/uL (3.80-5.20); RED CELL DISTRIBUTION WIDTH 15.1 % (11.5-14.5); WHITE BLOOD COUNT 8.6 K/uL (4.8-10.8)
[2018-03-29 09:35] VITALS: RESP 20
--- NOTE | 2018-03-29 11:24 | CT ---
Date of service: 03/29/2018 PROCEDURE: CT HEAD WITHOUT CONTRAST. HISTORY: facial pain, confusion, unsteady gait COMPARISON: MRI brain dated 03/25/2018; MRI brain dated 03/25/2018; CT head dated 03/23/2018 TECHNIQUE: Axial computed tomography images were obtained through the head/brain without intravenous contrast. Radiation dose: Total exam DLP = 1136 mGy-cm. This CT exam was performed using one or more of the following dose reduction techniques: Automated exposure control, adjustment of the mA and/or kV according to patient size, and/or use of iterative reconstruction technique. FINDINGS: HEMORRHAGE: No intracranial hemorrhage. BRAIN: No mass effect or edema. Atrophy. Chronic microvascular ischemic changes. Lacunar infarctions in the right basal ganglia left mayela redemonstrated. VENTRICLES: Unremarkable. No hydrocephalus. CALVARIUM: Unremarkable. PARANASAL SINUSES: Unremarkable as visualized. No significant inflammatory changes. MASTOID AIR CELLS: Unremarkable as visualized. No inflammatory changes. OTHER FINDINGS: None. IMPRESSION: No acute intracranial pathology. Age-related changes.
--- NOTE | 2018-03-30 04:22 | CP.PCM.PN ---
<VelasquezHuong - Last Filed: 03/30/18 04:20> Subjective - Date & Time of Evaluation Date of Evaluation: 03/30/18 Time of Evaluation: 04:20 - Subjective Subjective: PGY-1 Medicine Progress note for Hospitalist Dr. Nava Patient was seen and examined at bedside in no acute distress. Nurse reports no overnight events. Patient clinically same, tolerating diet. Denies chest pain, shortness of breath, nausea, vomiting, constipation, diarrhea, fever, chills. Objective - Vital Signs/Intake and Output Vital Signs (last 24 hours): Temp Pulse Resp BP Pulse Ox 98.9 F 72 20 121/63 97 03/29/18 23:50 03/29/18 23:50 03/29/18 23:50 03/29/18 23:50 03/29/18 23:50 - Medications Medications: Current Medications Amlodipine Besylate (Norvasc) 10 mg PO DAILY [facility] Last Admin: 03/29/18 10:30 Dose: 10 mg Aspirin (Aspirin Chewable) 81 mg PO DAILY [facility] Last Admin: 03/29/18 10:30 Dose: 81 mg Carvedilol (Coreg) 12.5 mg PO BID [facility] Last Admin: 03/29/18 17:48 Dose: 12.5 mg Heparin Sodium (Porcine) (Heparin) 5,000 units SC Q12 [facility] Last Admin: 03/29/18 22:47 Dose: 5,000 units Hydralazine HCl (Apresoline) 10 mg PO Q6H PRN PRN Reason: Systolic Blood Pressure Lisinopril (Zestril) 10 mg PO Q24H [facility] Last Admin: 03/29/18 14:40 Dose: 10 mg Promethazine HCl (Phenergan Syrup) 12.5 mg PO Q6 PRN PRN Reason: Nausea/Vomiting Rosuvastatin Calcium (Crestor) 5 mg PO HS [facility] Last Admin: 03/29/18 22:47 Dose: 5 mg - Labs Labs: 03/29/18 07:35 03/29/18 07:35 - Constitutional Appears: Non-toxic, No Acute Distress, Confused - Head Exam Head Exam: ATRAUMATIC, NORMOCEPHALIC - Eye Exam Eye Exam: EOMI, Normal appearance - ENT Exam ENT Exam: Mucous Membranes Moist, Normal Exam - Respiratory Exam Respiratory Exam: Clear to Ausculation Bilateral, NORMAL BREATHING PATTERN. absent: Rales, Rhonchi, Wheezes - Cardiovascular Exam Cardiovascular Exam: REGULAR RHYTHM, +S1, +S2. absent: Murmur - GI/Abdominal Exam GI & Abdominal Exam: Soft, Normal Bowel Sounds. absent: Firm, Guarding, Rigid, Tenderness - Extremities Exam Extremities Exam: Normal Capillary Refill, Normal Inspection - Neurological Exam Neurological Exam: Abnormal Gait, Alert, Awake, Oriented x3 - Psychiatric Exam Psychiatric exam: Normal Affect, Normal Mood - Skin Skin Exam: Dry, Intact, Normal Color, Warm Assessment and Plan - Assessment and Plan (Free Text) Assessment: 72 yo Creole speaking F with PMHx of HTN presenting with L sided facial pain and toothache and associated vomiting, loose stools since resolved. Plan: 1. Dizziness, r/o CVA -Admitting hospitalist was concerned for possible CVA due to complaints of L facial weakness -"weakness" is actually pain secondary to a toothache -f/u with dentist outpatient -CT Head (03/23): age related neuro-degenerative changes and chronic lacunar right basal ganglion infarct -Carotid Doppler Study (03/23): no acute findings -MRI head (03/25): no acute findings, moderate chronic microangiopathic changes and age-related global parenchymal volume loss -repeat CT head (03/29): no acute intracranial pathology. age-related changes -2D Echo (03/25): LVEF >50%, normal LV systolic function, LVH with diastolic dysfunction. trace to mild AR, trace to mild MR, trace to mild TR. -TSH, T4 are normal -Troponin x 3 are negative -RPR serology nonreactive -Lyme Screen negative -Vitamin B12, folate normal - Vitamin D 14.9 -continue w/ ASA 81 mg PO 1x/day -continue w/ Crestor 5 mg PO 1x/day 2. HTN -Norvasc 10 mg PO 1x/day at 10 AM -Coreg 12.5 mg PO 2x/day at 10 AM and 6 PM -Lisinopril 10 mg PO 1x/day -Hydralazine 10 mg PO Q6H PRN SBP > 160: note that IV Hydralazine is out of stock in [facility] pharmacy 3. Left Anterior Fascicular Block with RBBB -EKG: tall R wave and small Q wave in I and aVL, small R wave and deep S wave in II-III-aVF, left axis deviation, prolonged QTc which fits with Left Anterior Fascicular Block -Also shows RBBB -NO prior EKG for review and patient history is not reliable -troponin x3 negative, no current complaints of chest pain, palpitations, SOB -Echo: LVH with diastolic dysfunction -medically cleared per Cardio recs (Dr. Bearden) 6. Hypokalemia -repleted, continue to monitor 7. PPx, Diet, Disposition -continue w/ heparin 5,000 Unit SC Q8H -continue w/ promethazine 5 ml PO Q6H PRN for n/v -NO Zofran and NO Reglan because of the prolonged QTc -PT on board -recommended ALEJANDRO for d/c but pt has no insurance -requires 2 person max assist with walker for ambulation, very high fall risk -f/u case management for safe discharge plan -soft, regular diet will d/w Dr. Elijah Vealsquez PGY-1 <Ana María Nava - Last Filed: 03/31/18 21:40> Objective - Vital Signs/Intake and Output Vital Signs (last 24 hours): Temp Pulse Resp BP Pulse Ox 97.7 F 74 20 150/70 96 03/30/18 15:00 03/30/18 15:00 03/30/18 15:00 03/30/18 15:00 03/30/18 15:00 - Medications Medications: Current Medications Amlodipine Besylate (Norvasc) 10 mg PO DAILY [facility] Last Admin: 03/30/18 10:09 Dose: 10 mg Aspirin (Aspirin Chewable) 81 mg PO DAILY [facility] Last Admin: 03/30/18 10:10 Dose: 81 mg Carvedilol (Coreg) 12.5 mg PO BID [facility] Last Admin: 03/30/18 10:09 Dose: 12.5 mg Heparin Sodium (Porcine) (Heparin) 5,000 units SC Q12 [facility] Last Admin: 03/30/18 10:10 Dose: 5,000 units Hydralazine HCl (Apresoline) 10 mg PO Q6H PRN PRN Reason: Systolic Blood Pressure Lisinopril (Zestril) 10 mg PO Q24H [facility] Last Admin: 03/30/18 14:44 Dose: 10 mg Promethazine HCl (Phenergan Syrup) 12.5 mg PO Q6 PRN PRN Reason: Nausea/Vomiting Rosuvastatin Calcium (Crestor) 5 mg PO HS [facility] Last Admin: 03/29/18 22:47 Dose: 5 mg - Labs Labs: 03/30/18 06:38 03/30/18 06:38 Attending/Attestation - Attestation I have personally seen and examined this patient.: Yes I have fully participated in the care of the patient.: Yes I have reviewed all pertinent clinical information, including history, physical exam and plan: Yes Notes (Text): Patient is alert and oriented Lying comfortable,no changes noted. continue current meds unsteady gait.Continue PT Unsafe to discharge two person assist to home
[2018-03-30 06:49] LABS: BASO # 0.1 K/uL (0.0-0.2); BASO % 0.9 % (0.0-2.0); EOS # 0.2 K/uL (0.0-0.7); EOS % 2.8 % (0.0-4.0); HEMOGLOBIN 10.6 g/dL (11.0-16.0); LYMPH # 2.8 K/uL (1.0-4.3); LYMPH % 32.4 % (20.0-40.0); MEAN CELL VOLUME 91.2 fL (81.0-99.0); MEAN CORPUSCULAR HEMOGLOBIN 31.1 pg (27.0-31.0); MEAN CORPUSCULAR HGB CONC 34.1 g/dL (33.0-37.0); MEAN PLATELET VOLUME 10.6 fL (7.2-11.7); MONO # 0.7 K/uL (0.0-0.8); MONO % 8.3 % (0.0-10.0); NEUT # 4.8 K/uL (1.8-7.0); NEUT % 55.6 % (50.0-75.0); RBC 3.39 Mil/uL (3.80-5.20); RED CELL DISTRIBUTION WIDTH 14.8 % (11.5-14.5); WHITE BLOOD COUNT 8.5 K/uL (4.8-10.8)
[2018-03-30 06:55] LABS: ALBUMIN 3.5 g/dL (3.5-5.0); ALT/SGPT 25 U/L (9-52); AST/SGOT 13 U/L (14-36); BLOOD UREA NITROGEN 22 mg/dL (7-17); CALCIUM 8.9 mg/dl (8.6-10.4); GFR NON-AFRICAN AMERICAN > 60
--- NOTE | 2018-03-31 03:12 | CP.PCM.PN ---
<Huong Velasquez - Last Filed: 03/31/18 03:09> Subjective - Date & Time of Evaluation Date of Evaluation: 03/31/18 Time of Evaluation: 03:09 - Subjective Subjective: PGY-1 Medicine Progress note for Hospitalist Dr. Nava Patient was seen and examined at bedside in no acute distress. Nurse reports no overnight events. Patient clinically same, tolerating diet. Denies chest pain, shortness of breath, nausea, vomiting, constipation, diarrhea, fever, chills. Objective - Vital Signs/Intake and Output Vital Signs (last 24 hours): Temp Pulse Resp BP Pulse Ox 98 F 78 20 109/58 L 97 03/30/18 23:20 03/30/18 23:20 03/30/18 23:20 03/30/18 23:20 03/30/18 23:20 - Medications Medications: Current Medications Amlodipine Besylate (Norvasc) 10 mg PO DAILY [facility] Last Admin: 03/30/18 10:09 Dose: 10 mg Aspirin (Aspirin Chewable) 81 mg PO DAILY [facility] Last Admin: 03/30/18 10:10 Dose: 81 mg Carvedilol (Coreg) 12.5 mg PO BID [facility] Last Admin: 03/30/18 22:10 Dose: 12.5 mg Heparin Sodium (Porcine) (Heparin) 5,000 units SC Q12 [facility] Last Admin: 03/30/18 22:11 Dose: 5,000 units Hydralazine HCl (Apresoline) 10 mg PO Q6H PRN PRN Reason: Systolic Blood Pressure Lisinopril (Zestril) 10 mg PO Q24H [facility] Last Admin: 03/30/18 14:44 Dose: 10 mg Promethazine HCl (Phenergan Syrup) 12.5 mg PO Q6 PRN PRN Reason: Nausea/Vomiting Rosuvastatin Calcium (Crestor) 5 mg PO HS [facility] Last Admin: 03/30/18 22:11 Dose: 5 mg - Labs Labs: 03/30/18 06:38 03/30/18 06:38 - Constitutional Appears: Non-toxic, No Acute Distress - Head Exam Head Exam: ATRAUMATIC, NORMOCEPHALIC - Eye Exam Eye Exam: EOMI, Normal appearance - ENT Exam ENT Exam: Mucous Membranes Moist, Normal Exam - Respiratory Exam Respiratory Exam: Clear to Ausculation Bilateral, NORMAL BREATHING PATTERN. absent: Rales, Rhonchi, Wheezes - Cardiovascular Exam Cardiovascular Exam: REGULAR RHYTHM, +S1, +S2. absent: Murmur - GI/Abdominal Exam GI & Abdominal Exam: Soft, Normal Bowel Sounds. absent: Firm, Guarding, Tenderness, Mass - Extremities Exam Extremities Exam: Normal Capillary Refill, Normal Inspection. absent: Pedal Edema - Neurological Exam Neurological Exam: Alert, Awake, Oriented x3 - Psychiatric Exam Psychiatric exam: Normal Affect, Normal Mood - Skin Skin Exam: Normal Color, Warm Assessment and Plan - Assessment and Plan (Free Text) Assessment: 72 yo Creole speaking F with PMHx of HTN presenting with L sided facial pain and toothache and associated vomiting, loose stools since resolved. Plan: 1. Dizziness, r/o CVA -Admitting hospitalist was concerned for possible CVA due to complaints of L facial weakness -"weakness" is actually pain secondary to a toothache -f/u with dentist outpatient -CT Head (03/23): age related neuro-degenerative changes and chronic lacunar right basal ganglion infarct -Carotid Doppler Study (03/23): no acute findings -MRI head (03/25): no acute findings, moderate chronic microangiopathic changes and age-related global parenchymal volume loss -repeat CT head (03/29): no acute intracranial pathology. age-related changes -2D Echo (03/25): LVEF >50%, normal LV systolic function, LVH with diastolic dysfunction. trace to mild AR, trace to mild MR, trace to mild TR. -TSH, T4 are normal -Troponin x 3 are negative -RPR serology nonreactive -Lyme Screen negative -Vitamin B12, folate normal - Vitamin D 14.9 -continue w/ ASA 81 mg PO 1x/day -continue w/ Crestor 5 mg PO 1x/day 2. HTN -Norvasc 10 mg PO 1x/day at 10 AM -Coreg 12.5 mg PO 2x/day at 10 AM and 6 PM -Lisinopril 10 mg PO 1x/day -Hydralazine 10 mg PO Q6H PRN SBP > 160: note that IV Hydralazine is out of stock in [facility] pharmacy 3. Left Anterior Fascicular Block with RBBB -EKG: tall R wave and small Q wave in I and aVL, small R wave and deep S wave in II-III-aVF, left axis deviation, prolonged QTc which fits with Left Anterior Fascicular Block -Also shows RBBB -NO prior EKG for review and patient history is not reliable -troponin x3 negative, no current complaints of chest pain, palpitations, SOB -Echo: LVH with diastolic dysfunction -medically cleared per Cardio recs (Dr. Bearden) 6. Hypokalemia -repleted, continue to monitor 7. PPx, Diet, Disposition -continue w/ heparin 5,000 Unit SC Q8H -continue w/ promethazine 5 ml PO Q6H PRN for n/v -NO Zofran and NO Reglan because of the prolonged QTc -PT on board -recommended ALEJANDRO for d/c but pt has no insurance -requires 2 person max assist with walker for ambulation, very high fall risk -f/u case management for safe discharge plan -soft, regular diet will d/w Dr. Elijah Velasquez PGY-1 <Ana María Nava - Last Filed: 03/31/18 21:41> Objective - Vital Signs/Intake and Output Vital Signs (last 24 hours): Temp Pulse Resp BP Pulse Ox 97.9 F 70 20 133/65 96 03/31/18 15:00 03/31/18 15:00 03/31/18 15:00 03/31/18 17:51 03/31/18 15:00 - Medications Medications: Current Medications Amlodipine Besylate (Norvasc) 10 mg PO DAILY [facility] Last Admin: 03/31/18 10:19 Dose: 10 mg Aspirin (Aspirin Chewable) 81 mg PO DAILY [facility] Last Admin: 03/31/18 10:19 Dose: 81 mg Carvedilol (Coreg) 12.5 mg PO BID [facility] Last Admin: 03/31/18 17:51 Dose: 12.5 mg Heparin Sodium (Porcine) (Heparin) 5,000 units SC Q12 [facility] Last Admin: 03/31/18 10:19 Dose: 5,000 units Hydralazine HCl (Apresoline) 10 mg PO Q6H PRN PRN Reason: Systolic Blood Pressure Lisinopril (Zestril) 10 mg PO Q24H [facility] Last Admin: 03/31/18 13:04 Dose: 10 mg Promethazine HCl (Phenergan Syrup) 12.5 mg PO Q6 PRN PRN Reason: Nausea/Vomiting Rosuvastatin Calcium (Crestor) 5 mg PO HS [facility] Last Admin: 03/30/18 22:11 Dose: 5 mg - Labs Labs: 03/31/18 09:48 03/31/18 09:48 Attending/Attestation - Attestation I have personally seen and examined this patient.: Yes I have fully participated in the care of the patient.: Yes I have reviewed all pertinent clinical information, including history, physical exam and plan: Yes Notes (Text): Patient is alert and oriented Lying comfortable,no changes noted. continue current meds unsteady gait.Continue PT Unsafe to discharge two person assist to home Re evaluate on Sunday and follow with HEATHER
[2018-03-31 10:12] LABS: ALB/GLOB RATIO 1.1 (1.0-2.1); ALBUMIN 3.5 g/dL (3.5-5.0); ALT/SGPT 21 U/L (9-52); AST/SGOT 14 U/L (14-36); BLOOD UREA NITROGEN 21 mg/dL (7-17); GFR NON-AFRICAN AMERICAN > 60
[2018-03-31 10:19] LABS: HEMOGLOBIN 10.6 g/dL (11.0-16.0); MEAN CELL VOLUME 92.2 fL (81.0-99.0); MEAN CORPUSCULAR HEMOGLOBIN 30.9 pg (27.0-31.0); MEAN CORPUSCULAR HGB CONC 33.5 g/dL (33.0-37.0); MEAN PLATELET VOLUME 11.4 fL (7.2-11.7); RBC 3.43 Mil/uL (3.80-5.20); RED CELL DISTRIBUTION WIDTH 15.1 % (11.5-14.5); WHITE BLOOD COUNT 8.2 K/uL (4.8-10.8)
--- NOTE | 2018-04-01 06:02 | CP.PCM.PN ---
<Jules Katz - Last Filed: 04/01/18 07:51> Subjective - Date & Time of Evaluation Date of Evaluation: 04/01/18 Time of Evaluation: 05:46 - Subjective Subjective: PGY2 Medicine Note for Dr. Fitzgerald Patient seen and examined this morning at bedside. No acute events overnight. Patient is feeling well and has no complaints at this time. Denies chest pain, shortness of breath, nausea, vomiting, constipation, diarrhea, fever, chills. Objective - Vital Signs/Intake and Output Vital Signs (last 24 hours): Temp Pulse Resp BP Pulse Ox 98.2 F 67 20 125/73 98 03/31/18 23:45 03/31/18 23:45 03/31/18 23:45 03/31/18 23:45 03/31/18 23:45 - Medications Medications: Current Medications Amlodipine Besylate (Norvasc) 10 mg PO DAILY [facility] Last Admin: 03/31/18 10:19 Dose: 10 mg Aspirin (Aspirin Chewable) 81 mg PO DAILY [facility] Last Admin: 03/31/18 10:19 Dose: 81 mg Carvedilol (Coreg) 12.5 mg PO BID [facility] Last Admin: 03/31/18 17:51 Dose: 12.5 mg Heparin Sodium (Porcine) (Heparin) 5,000 units SC Q12 [facility] Hydralazine HCl (Apresoline) 10 mg PO Q6H PRN PRN Reason: Systolic Blood Pressure Lisinopril (Zestril) 10 mg PO Q24H [facility] Last Admin: 03/31/18 13:04 Dose: 10 mg Promethazine HCl (Phenergan Syrup) 12.5 mg PO Q6 PRN PRN Reason: Nausea/Vomiting Rosuvastatin Calcium (Crestor) 5 mg PO HS [facility] Last Admin: 03/31/18 22:38 Dose: 5 mg - Labs Labs: 03/31/18 09:48 03/31/18 09:48 - Additional Findings Additional findings: - Constitutional Appears: Non-toxic, No Acute Distress - Head Exam Head Exam: ATRAUMATIC, NORMOCEPHALIC - Eye Exam Eye Exam: EOMI, Normal appearance - ENT Exam ENT Exam: Mucous Membranes Moist, Normal Exam - Respiratory Exam Respiratory Exam: Clear to Ausculation Bilateral, NORMAL BREATHING PATTERN. absent: Rales, Rhonchi, Wheezes - Cardiovascular Exam Cardiovascular Exam: REGULAR RHYTHM, +S1, +S2. absent: Murmur - GI/Abdominal Exam GI & Abdominal Exam: Soft, Normal Bowel Sounds. absent: Firm, Guarding, Tenderness, Mass - Extremities Exam Extremities Exam: Normal Capillary Refill, Normal Inspection. absent: Pedal Edema - Neurological Exam Neurological Exam: Alert, Awake, Oriented x3 - Psychiatric Exam Psychiatric exam: Normal Affect, Normal Mood - Skin Skin Exam: Normal Color, Warm Assessment and Plan - Assessment and Plan (Free Text) Plan: 1. Dizziness, r/o CVA -Admitting hospitalist was concerned for possible CVA due to complaints of L facial weakness -"weakness" is actually pain secondary to a toothache -f/u with dentist outpatient -CT Head (03/23): age related neuro-degenerative changes and chronic lacunar right basal ganglion infarct -Carotid Doppler Study (03/23): no acute findings -MRI head (03/25): no acute findings, moderate chronic microangiopathic changes and age-related global parenchymal volume loss -repeat CT head (03/29): no acute intracranial pathology. age-related changes -2D Echo (03/25): LVEF >50%, normal LV systolic function, LVH with diastolic dysfunction. trace to mild AR, trace to mild MR, trace to mild TR. -TSH, T4 are normal -Troponin x 3 are negative -RPR serology nonreactive -Lyme Screen negative -Vitamin B12, folate normal - Vitamin D 14.9 -continue w/ ASA 81 mg PO 1x/day -continue w/ Crestor 5 mg PO 1x/day 2. HTN -Norvasc 10 mg PO 1x/day at 10 AM -Coreg 12.5 mg PO 2x/day at 10 AM and 6 PM -Lisinopril 10 mg PO 1x/day -Hydralazine 10 mg PO Q6H PRN SBP > 160: note that IV Hydralazine is out of stock in [facility] pharmacy 3. Left Anterior Fascicular Block with RBBB -EKG: tall R wave and small Q wave in I and aVL, small R wave and deep S wave in II-III-aVF, left axis deviation, prolonged QTc which fits with Left Anterior Fascicular Block -Also shows RBBB -NO prior EKG for review and patient history is not reliable -troponin x3 negative, no current complaints of chest pain, palpitations, SOB -Echo: LVH with diastolic dysfunction -medically cleared per Cardio recs (Dr. Bearden) 4. Hypokalemia -replete as needed, continue to monitor 5. PPx, Diet, Disposition -continue w/ heparin 5,000 Unit SC Q8H -continue w/ promethazine 5 ml PO Q6H PRN for n/v -NO Zofran and NO Reglan because of the prolonged QTc -PT on board -recommended ALEJANDRO for d/c but pt has no insurance -requires 2 person max assist with walker for ambulation, very high fall risk -f/u case management for safe discharge plan -soft, regular diet will discuss case with Dr. Lia Vicente Sterling PGY2 <Jose Juan Fitzgerald H - Last Filed: 04/01/18 08:55> Objective - Vital Signs/Intake and Output Vital Signs (last 24 hours): Temp Pulse Resp BP Pulse Ox 97.7 F 70 20 136/74 97 04/01/18 08:16 04/01/18 08:16 04/01/18 08:16 04/01/18 08:16 04/01/18 08:16 - Medications Medications: Current Medications Amlodipine Besylate (Norvasc) 10 mg PO DAILY [facility] Last Admin: 03/31/18 10:19 Dose: 10 mg Aspirin (Aspirin Chewable) 81 mg PO DAILY [facility] Last Admin: 03/31/18 10:19 Dose: 81 mg Carvedilol (Coreg) 12.5 mg PO BID [facility] Last Admin: 03/31/18 17:51 Dose: 12.5 mg Heparin Sodium (Porcine) (Heparin) 5,000 units SC Q12 [facility] Hydralazine HCl (Apresoline) 10 mg PO Q6H PRN PRN Reason: Systolic Blood Pressure Lisinopril (Zestril) 10 mg PO Q24H [facility] Last Admin: 03/31/18 13:04 Dose: 10 mg Promethazine HCl (Phenergan Syrup) 12.5 mg PO Q6 PRN PRN Reason: Nausea/Vomiting Rosuvastatin Calcium (Crestor) 5 mg PO HS [facility] Last Admin: 03/31/18 22:38 Dose: 5 mg - Labs Labs: 03/31/18 09:48 03/31/18 09:48 Attending/Attestation - Attestation I have personally seen and examined this patient.: Yes I have fully participated in the care of the patient.: Yes I have reviewed all pertinent clinical information, including history, physical exam and plan: Yes Notes (Text): 04/01/18 08:48 Medical attending: Patient was seen and examined by me this morning. Reviewed the above note by the resident and agree with the above My ROS with the patient was somewhat limited due to language difference nevertheless she was not in any acute distress when I saw her and she was able to do very simple one step commands on physicial exam. As of yesterday her lab work has remained stable and her vital signs stable as well. Her BP is also in acceptable range - when she was admitted on 03/23 she was having abnormally high numbers. She is now on Lisinopril and Coreg and Norvasc. She has had MRI, CT of the head as well as echo and carotid studies. At this time she is recommended by PT for ALEJANDRO however given her lack of insurance this is not possible. Hopefully tommorow she can be discharged to home , will need to see if home PT could be arranged by social/case workers Jose Juan Fitzgerald
[2018-04-02 07:37] LABS: HEMOGLOBIN 10.7 g/dL (11.0-16.0); MEAN CELL VOLUME 92.6 fL (81.0-99.0); MEAN CORPUSCULAR HEMOGLOBIN 31.7 pg (27.0-31.0); MEAN CORPUSCULAR HGB CONC 34.3 g/dL (33.0-37.0); MEAN PLATELET VOLUME 11.9 fL (7.2-11.7); RBC 3.37 Mil/uL (3.80-5.20); RED CELL DISTRIBUTION WIDTH 15.5 % (11.5-14.5)
[2018-04-02 08:46] LABS: ALBUMIN 3.6 g/dL (3.5-5.0); CALCIUM 9.2 mg/dl (8.6-10.4)
--- NOTE | 2018-04-02 14:22 | CP.PCM.DIS ---
<James Crews - Last Filed: 04/02/18 20:06> Provider - Provider Date of Admission: 03/27/18 17:32 Attending physician: Jose Juan Fitzgerald DO Time Spent in preparation of Discharge (in minutes): 40 Hospital Course - Lab Results Lab Results: Micro Results 03/24/18 15:47 Urine,Clean Catch Urine Culture - Final MULTIPLE SPECIES. SUGGEST REPEAT SPECIMEN. Most Recent Lab Values WBC 9.0 K/uL (4.8-10.8) 04/02/18 07:28 RBC 3.37 Mil/uL (3.80-5.20) L 04/02/18 07:28 Hgb 10.7 g/dL (11.0-16.0) L 04/02/18 07:28 Hct 31.2 % (34.0-47.0) L 04/02/18 07:28 MCV 92.6 fL (81.0-99.0) 04/02/18 07:28 MCH 31.7 pg (27.0-31.0) H 04/02/18 07:28 MCHC 34.3 g/dL (33.0-37.0) 04/02/18 07:28 RDW 15.5 % (11.5-14.5) H 04/02/18 07:28 Plt Count 157 K/uL (130-400) 04/02/18 07:28 MPV 11.9 fL (7.2-11.7) H 04/02/18 07:28 Neut % (Auto) 55.6 % (50.0-75.0) 03/30/18 06:38 Lymph % (Auto) 32.4 % (20.0-40.0) 03/30/18 06:38 [place] % (Auto) 8.3 % (0.0-10.0) 03/30/18 06:38 Eos % (Auto) 2.8 % (0.0-4.0) 03/30/18 06:38 Baso % (Auto) 0.9 % (0.0-2.0) 03/30/18 06:38 Neut # (Auto) 4.8 K/uL (1.8-7.0) 03/30/18 06:38 Lymph # (Auto) 2.8 K/uL (1.0-4.3) 03/30/18 06:38 [place] # (Auto) 0.7 K/uL (0.0-0.8) 03/30/18 06:38 Eos # (Auto) 0.2 K/uL (0.0-0.7) 03/30/18 06:38 Baso # (Auto) 0.1 K/uL (0.0-0.2) 03/30/18 06:38 Sodium 144 mmol/L (132-148) 04/02/18 07:28 Potassium 4.1 mmol/L (3.6-5.2) 04/02/18 07:28 Chloride 106 mmol/L (98-107) 04/02/18 07:28 Carbon Dioxide 29 mmol/L (22-30) 04/02/18 07:28 Anion Gap 13 (10-20) 04/02/18 07:28 BUN 29 mg/dL (7-17) H 04/02/18 07:28 Creatinine 1.1 mg/dL (0.7-1.2) 04/02/18 07:28 Est GFR ( Amer) 59 04/02/18 07:28 Est GFR (Non-Af Amer) 49 04/02/18 07:28 POC Glucose (mg/dL) 124 mg/dL (65-110) H 03/31/18 21:56 Random Glucose 107 mg/dL (65-105) H 04/02/18 07:28 Calcium 9.2 mg/dl (8.6-10.4) 04/02/18 07:28 Phosphorus 4.4 mg/dL (2.5-4.5) 04/02/18 07:28 Magnesium 2.0 mg/dL (1.6-2.3) 04/02/18 07:28 Total Bilirubin 0.2 mg/dL (0.2-1.3) 04/02/18 07:28 AST 23 U/L (14-36) 04/02/18 07:28 ALT 27 U/L (9-52) 04/02/18 07:28 Alkaline Phosphatase 92 U/L (38-126) 04/02/18 07:28 Total Creatine Kinase 115 U/L (30-135) 03/23/18 23:28 CK-MB (Mass) 0.59 ng/mL (0.0-3.38) 03/23/18 23:28 Troponin I < 0.0120 ng/mL (0.00-0.120) 03/23/18 23:28 NT-Pro-B Natriuret Pep 190 pg/mL (0-900) 03/23/18 16:47 Total Protein 7.1 g/dL (6.3-8.3) 04/02/18 07:28 Albumin 3.6 g/dL (3.5-5.0) 04/02/18 07:28 Globulin 3.5 gm/dL (2.2-3.9) 04/02/18 07:28 Albumin/Globulin Ratio 1.0 (1.0-2.1) 04/02/18 07:28 Triglycerides 82 mg/dL (0-149) 03/25/18 11:41 Cholesterol 184 mg/dL (0-199) 03/25/18 11:41 LDL Cholesterol Direct 115 mg/dL (0-129) 03/25/18 11:41 HDL Cholesterol 31 mg/dL (30-70) 03/25/18 11:41 Lipase 45 U/L (23-300) 03/23/18 07:58 Vitamin B12 280 pg/mL (239-931) 03/25/18 11:41 25-OH Vitamin D Total 14.9 NG/ML (30.0-100.0) L 03/25/18 11:41 Folate 12.0 ng/mL 03/25/18 11:41 Free T4 1.25 ng/dL (0.78-2.19) 03/24/18 07:14 TSH 3rd Generation 1.03 mIU/L (0.46-4.68) 03/24/18 07:14 Urine Color Yellow (YELLOW) 03/23/18 14:53 Urine Clarity Clear (Clear) 03/23/18 14:53 Urine pH 6.0 (5.0-8.0) 03/23/18 14:53 Ur Specific [place] 1.019 (1.003-1.030) 03/23/18 14:53 Urine Protein 1+ mg/dL (NEGATIVE) H 03/23/18 14:53 Urine Glucose (UA) Normal mg/dL (Normal) 03/23/18 14:53 Urine Ketones 1+ mg/dL (NEGATIVE) H 03/23/18 14:53 Urine Blood 2+ (NEGATIVE) H 03/23/18 14:53 Urine Nitrate Negative (NEGATIVE) 03/23/18 14:53 Urine Bilirubin Negative (NEGATIVE) 03/23/18 14:53 Urine Urobilinogen Normal mg/dL (0.2-1.0) 03/23/18 14:53 Ur Leukocyte Esterase Neg Daniela/uL (Negative) 03/23/18 14:53 Urine WBC (Auto) 1 /hpf (0-5) 03/23/18 14:53 Urine RBC (Auto) 16 /hpf (0-3) H 03/23/18 14:53 Ur Squamous Epith Cells 1 /hpf (0-5) 03/23/18 14:53 RPR Nonreactive (NONREACTIVE) 03/25/18 11:41 Lyme Disease Screen <0.90 index 03/24/18 17:03 - Hospital Course Hospital Course: HPI: 72yo female with a pmhx of htn presents to the ed with constant clear non- bloody vomiting x3 days and elevated bp. Pt is not able to tolerate foods. Pt has vomited any fluids shes been able to drink for past 3 days aswell. Pt reports poor appetite, hiccups as well. Pt feels dizzy post vomiting, but room is not spinning. Pt denies headaches or changes in vision. Pt has associated back pain, shoulder discomfort. Pt reports heart palpitations as previously diagnosed with her pmhx of HTN. Pt also reports freq urination (likely due to lasix? unconfirmed home rx). her last bowel movement was loose dark stool and painful when passing. Hospital Course: Patient was admitted on 03/23/18 for constant NBNB vomiting for 3 days, uncontrolled HTN (210/90), and ataxia in the setting of L facial pain and toothache. Admitting hospitalist was concerned for possible CVA due to complaints of L facial weakness. Pain found to be secondary to toothache. Patient's nausea and vomiting has since resolved and patient tolerated diet well. CT head (03/23) showed age related neuro-degenerative changes and chronic lacunar right basal ganglion infarct. Repeat CT head (03/29) also negative. Carotid doppler studies (03/23) were negative. MRI head (03/25) no acute findings , moderate chronic microangiopathic changes and age-related global parenchymal volume loss. Patient's EKG revealed tall R wave and small Q wave in I and aVL, small R wave and deep S wave in II-III-aVF, left axis deviation, prolonged QTc which fits with Left Anterior Fascicular Bloc; it also showed RBBB. No prior EKG was available for review. Cardiology (Dr. Bearden) was consulted. Troponin x3 were negative and patient had no complaints of chest pain, palpitations, or SOB. 2D Echo(03/25) showed LVH with diastolic dysfunction. Patient was cleared from a cardiology perspective. Patient's BP stabilized during admission with Norvasc 10 mg PO, Coreg 12.5 mg PO BID, Lisinopril 10 mg PO daily, and Hydralazine 10 mg PO q6 prn. Patient reports feeling well with no complaints at time of discharge, aside from lingering toothache. Patient's son was contacted and instructed to follow- up outpatient with dentistry. She continues to have unsteady gait, shifting heavily towards her L side when ambulating with rolling walker on the floor; requires moderate assistance. Per Physical therapy, patient has improved but would benefit from ALEJANDRO. Patient does not qualify however, as she does not have insurance. Patient's son was notified of all of this and said he is greatly involved in patient's care at home, would tend to mother's needs. Patient is medically stable for discharge to home, per Dr. Fitzgerald. Due to high risk of fall, it is very important that patient obtain a wheelchair to minimize chances of fall. Scripts have been provided for both a rolling walker and wheelchair. It is very important that patient has assistance with ambulation, if opting to use a rolling walker. Patient to take the following medications, as prescribed: Norvasc 10 mg PO daily Aspirin 81 mg PO daily Carvedilol 12.5 mg PO two times per day Lisinopril 10 mg PO daily Crestor 5 mg PO daily Patient instructed to follow up at [facility] within 1-2 weeks after discharge: [facility] [address] [facility] [address] Please call to make appointment: [phone] The following is a summary of hospital course. For further detail, please refer to EMR. Discharge Exam - Head Exam Head Exam: ATRAUMATIC, NORMOCEPHALIC Discharge Plan - Discharge Medications Prescriptions: amLODIPine [Norvasc] 10 mg PO DAILY #30 tab Aspirin [Aspirin Chewable] 81 mg PO DAILY #30 chew Carvedilol [Coreg] 12.5 mg PO BID #30 tab Lisinopril [Zestril] 10 mg PO Q24H #30 tab Rosuvastatin Calcium [Crestor] 5 mg PO HS #30 tab - Follow Up Plan Condition: STABLE Disposition: HOME/ ROUTINE Instructions: High Blood Pressure in Adults, High Blood Pressure (DC), Controlling Your Blood Pressure Through Lifestyle, Generalized Weakness (DC) Additional Instructions: Patient is medically stable for discharge to home, per Dr. Fitzgerald. Due to high risk of fall, it is very important that patient obtain a wheelchair to minimize chances of fall. Scripts have been provided for both a rolling walker and wheelchair. It is very important that patient has assistance with ambulation, if opting to use a rolling walker. Patient instructed to follow up at [facility] within 1-2 weeks after discharge: [address] [address] Please call to make appointment: [phone] <Jose Juan Fitzgerald - Last Filed: 04/03/18 08:11> Provider - Provider Date of Admission: 03/27/18 17:32 Attending physician: Jose Juan Fitzgerald, DO Hospital Course - Lab Results Lab Results: Micro Results 03/24/18 15:47 Urine,Clean Catch Urine Culture - Final MULTIPLE SPECIES. SUGGEST REPEAT SPECIMEN. Most Recent Lab Values WBC 9.0 K/uL (4.8-10.8) 04/02/18 07:28 RBC 3.37 Mil/uL (3.80-5.20) L 04/02/18 07:28 Hgb 10.7 g/dL (11.0-16.0) L 04/02/18 07:28 Hct 31.2 % (34.0-47.0) L 04/02/18 07:28 MCV 92.6 fL (81.0-99.0) 04/02/18 07:28 MCH 31.7 pg (27.0-31.0) H 04/02/18 07:28 MCHC 34.3 g/dL (33.0-37.0) 04/02/18 07:28 RDW 15.5 % (11.5-14.5) H 04/02/18 07:28 Plt Count 157 K/uL (130-400) 04/02/18 07:28 MPV 11.9 fL (7.2-11.7) H 04/02/18 07:28 Neut % (Auto) 55.6 % (50.0-75.0) 03/30/18 06:38 Lymph % (Auto) 32.4 % (20.0-40.0) 03/30/18 06:38 [place] % (Auto) 8.3 % (0.0-10.0) 03/30/18 06:38 Eos % (Auto) 2.8 % (0.0-4.0) 03/30/18 06:38 Baso % (Auto) 0.9 % (0.0-2.0) 03/30/18 06:38 Neut # (Auto) 4.8 K/uL (1.8-7.0) 03/30/18 06:38 Lymph # (Auto) 2.8 K/uL (1.0-4.3) 03/30/18 06:38 [place] # (Auto) 0.7 K/uL (0.0-0.8) 03/30/18 06:38 Eos # (Auto) 0.2 K/uL (0.0-0.7) 03/30/18 06:38 Baso # (Auto) 0.1 K/uL (0.0-0.2) 03/30/18 06:38 Sodium 144 mmol/L (132-148) 04/02/18 07:28 Potassium 4.1 mmol/L (3.6-5.2) 04/02/18 07:28 Chloride 106 mmol/L (98-107) 04/02/18 07:28 Carbon Dioxide 29 mmol/L (22-30) 04/02/18 07:28 Anion Gap 13 (10-20) 04/02/18 07:28 BUN 29 mg/dL (7-17) H 04/02/18 07:28 Creatinine 1.1 mg/dL (0.7-1.2) 04/02/18 07:28 Est GFR ( Amer) 59 04/02/18 07:28 Est GFR (Non-Af Amer) 49 04/02/18 07:28 POC Glucose (mg/dL) 124 mg/dL (65-110) H 03/31/18 21:56 Random Glucose 107 mg/dL (65-105) H 04/02/18 07:28 Calcium 9.2 mg/dl (8.6-10.4) 04/02/18 07:28 Phosphorus 4.4 mg/dL (2.5-4.5) 04/02/18 07:28 Magnesium 2.0 mg/dL (1.6-2.3) 04/02/18 07:28 Total Bilirubin 0.2 mg/dL (0.2-1.3) 04/02/18 07:28 AST 23 U/L (14-36) 04/02/18 07:28 ALT 27 U/L (9-52) 04/02/18 07:28 Alkaline Phosphatase 92 U/L (38-126) 04/02/18 07:28 Total Creatine Kinase 115 U/L (30-135) 03/23/18 23:28 CK-MB (Mass) 0.59 ng/mL (0.0-3.38) 03/23/18 23:28 Troponin I < 0.0120 ng/mL (0.00-0.120) 03/23/18 23:28 NT-Pro-B Natriuret Pep 190 pg/mL (0-900) 03/23/18 16:47 Total Protein 7.1 g/dL (6.3-8.3) 04/02/18 07:28 Albumin 3.6 g/dL (3.5-5.0) 04/02/18 07:28 Globulin 3.5 gm/dL (2.2-3.9) 04/02/18 07:28 Albumin/Globulin Ratio 1.0 (1.0-2.1) 04/02/18 07:28 Triglycerides 82 mg/dL (0-149) 03/25/18 11:41 Cholesterol 184 mg/dL (0-199) 03/25/18 11:41 LDL Cholesterol Direct 115 mg/dL (0-129) 03/25/18 11:41 HDL Cholesterol 31 mg/dL (30-70) 03/25/18 11:41 Lipase 45 U/L (23-300) 03/23/18 07:58 Vitamin B12 280 pg/mL (239-931) 03/25/18 11:41 25-OH Vitamin D Total 14.9 NG/ML (30.0-100.0) L 03/25/18 11:41 Folate 12.0 ng/mL 03/25/18 11:41 Free T4 1.25 ng/dL (0.78-2.19) 03/24/18 07:14 TSH 3rd Generation 1.03 mIU/L (0.46-4.68) 03/24/18 07:14 Urine Color Yellow (YELLOW) 03/23/18 14:53 Urine Clarity Clear (Clear) 03/23/18 14:53 Urine pH 6.0 (5.0-8.0) 03/23/18 14:53 Ur Specific [place] 1.019 (1.003-1.030) 03/23/18 14:53 Urine Protein 1+ mg/dL (NEGATIVE) H 03/23/18 14:53 Urine Glucose (UA) Normal mg/dL (Normal) 03/23/18 14:53 Urine Ketones 1+ mg/dL (NEGATIVE) H 03/23/18 14:53 Urine Blood 2+ (NEGATIVE) H 03/23/18 14:53 Urine Nitrate Negative (NEGATIVE) 03/23/18 14:53 Urine Bilirubin Negative (NEGATIVE) 03/23/18 14:53 Urine Urobilinogen Normal mg/dL (0.2-1.0) 03/23/18 14:53 Ur Leukocyte Esterase Neg Daniela/uL (Negative) 03/23/18 14:53 Urine WBC (Auto) 1 /hpf (0-5) 03/23/18 14:53 Urine RBC (Auto) 16 /hpf (0-3) H 03/23/18 14:53 Ur Squamous Epith Cells 1 /hpf (0-5) 03/23/18 14:53 RPR Nonreactive (NONREACTIVE) 03/25/18 11:41 Lyme Disease Screen <0.90 index 03/24/18 17:03 Attending/Attestation - Attestation I have personally seen and examined this patient.: Yes I have fully participated in the care of the patient.: Yes I have reviewed all pertinent clinical information, including history, physical exam and plan: Yes Notes (Text): Medical attending: Patient was seen and examined by me. Agree with the above note by the resident. The patient was not in any acute distress. The patient has been seen by PT and per sergioer recomendations she should go to [facility]. In a more ideal world we should be able to get her to [facility] however due to the patient's financial situation as well as immigration status this is not possible. I hope they would have been able to provide her with a wheel chair or something of sorts however I was again told this would not be possible. Probably the family will be able to cover the cost of a wheelchair. Reguardless she needs to take medication for HTN - since when she first came to the hospital her blood pressure was extremely high. It is now much improved Jose Juan Fitzgerald
[2018-04-02 15:49] VITALS: BP 154/74; PULSE 63; TEMP 98.6; O2SAT 97
== END 2018-04-02 20:00 | disposition home or self-care (01) | DRG 813 ==
LOC: C.ER 06:44 → C.9E 11:09 → C.6T 11:42 → OBSVTOIN 03-27 17:32
PROVIDERS: ADMIT Hospitalist; ATTEND Hospitalist
DX: R11.2 Nausea with vomiting, unspecified (principal); E86.0 Dehydration; K08.89 Other specified disorders of teeth and supporting structures; R42 Dizziness and giddiness; I10 Essential (primary) hypertension; E87.6 Hypokalemia; R53.83 Other fatigue; I45.2 Bifascicular block; R19.7 Diarrhea, unspecified; R35.0 Frequency of micturition; T50.1X5A Adverse effect of loop [high-ceiling] diuretics, initial encounter; R26.0 Ataxic gait; Z86.73 Personal history of transient ischemic attack (TIA), and cerebral infarction without residual deficits; Z91.14 Patient's other noncompliance with medication regimen; Z91.81 History of falling; R06.6 Hiccough